=== PATIENT | male | born 2000 | race Caucasian/White ===

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

== ENCOUNTER 2024-04-28 21:36 | Emergency (ER) | payer BC, OTHER ==
--- NOTE | 2024-04-28 21:49 | ED ---
Syncope HPI - General Chief Complaint: Shortness of Breath Stated Complaint: Asthma Time Seen by Provider: 04/28/24 21:39 Source: patient, EMS, RN notes reviewed, old records reviewed, Caregiver Mode of arrival: EMS Limitations: no limitations - History of Present Illness Initial Comments: This is a 23-year-old male to the ER for evaluation of severe shortness of breath and asthma for 2 to 3 days worsening today throughout the day at home, patient got very short of breath prior to arrival and has syncopal event, patient did feel like he had to go to the bathroom prior to this event and did stool himself during EMS transfer. EMS arrived at the patient's house and he was unresponsive family states he was very pale diaphoretic and showing a little color of below, not breathing well, patient has no history of syncope long history of asthma with prior hospital admission, history of peanut allergy patient is concern for possible allergic exposure MD Complaint: loss of consciousness, collapsed -: minutes(s) Prodromal Symptoms: lightheaded, palpitations, heart racing, shortness of breath, diaphoresis -: minutes(s) Witnessed: yes - by bystander, yes - by EMS Injuries Sustained Associated with Event: None Current Symptoms: lightheaded, shortness of breath, weakness Context: during exertion Treatments Prior to Arrival: none - Related Data Home Medications Medication Instructions Recorded Confirmed Albuterol Inhaler [Ventolin 2 puff INHALATION RT-Q6H PRN 10/13/13 02/14/19 Inhaler] Allergies Allergy/AdvReac Type Severity Reaction Status Date / Time peanut Allergy Rash/Hives Verified 04/28/24 21:41 Review of Systems ROS Statement: Those systems with pertinent positive or pertinent negative responses have been documented in the HPI. ROS Other: All systems not noted in ROS Statement are negative. Past Medical History Past Medical History: Asthma History of Any Multi-Drug Resistant Organisms: None Reported Past Surgical History: Ear Surgery Additional Past Surgical History / Comment(s): Tubes in ears Past Psychological History: No Psychological Hx Reported Smoking Status: Never smoker Past Alcohol Use History: None Reported Past Drug Use History: None Reported General Exam General appearance: anxious, in distress Head exam: Present: atraumatic, normocephalic, normal inspection Eye exam: Present: normal appearance, PERRL, EOMI. Absent: scleral icterus, c onjunctival injection, periorbital swelling ENT exam: Present: normal exam, mucous membranes moist Neck exam: Present: normal inspection. Absent: tenderness, meningismus, lymphadenopathy Respiratory exam: Present: respiratory distress, wheezes, accessory muscle use, decreased breath sounds, prolonged expiratory. Absent: rales, rhonchi, stridor Cardiovascular Exam: Present: regular rate, normal rhythm, normal heart sounds. Absent: systolic murmur, diastolic murmur, rubs, gallop, clicks GI/Abdominal exam: Present: soft, normal bowel sounds. Absent: distended, tenderness, guarding, rebound, rigid Extremities exam: Present: normal inspection, full ROM, normal capillary refill. Absent: tenderness, pedal edema, joint swelling, calf tenderness Back exam: Present: normal inspection Neurological exam: Present: alert, oriented X3, CN II-XII intact Psychiatric exam: Present: normal affect, normal mood Skin exam: Present: warm, dry, intact, normal color. Absent: rash Course Vital Signs 04/28/24 04/28/24 04/28/24 21:37 22:09 22:10 Temperature 97.3 F L Pulse Rate 81 Respiratory 24 24 Rate Blood Pressure 142/81 O2 Sat by Pulse 98 99 Oximetry 04/28/24 04/28/24 04/29/24 22:31 22:51 00:00 Temperature Pulse Rate 92 97 71 Respiratory 11 L Rate Blood Pressure 103/54 O2 Sat by Pulse 95 Oximetry 04/29/24 04/29/24 00:14 00:30 Temperature Pulse Rate 86 95 Respiratory Rate Blood Pressure O2 Sat by Pulse Oximetry - Reevaluation(s) Reevaluation #1: 04/28/24 22:13 Medical records reviewed Reevaluation #4: Was pt. sent in by a medical professional or institution (, PA, HEAD HOLDER, urgent care, hospital, or prison...) When possible be specific @ -no Did you speak to anyone other than the patient for history (EMS, parent, family, police, friend...)? What history was obtained from this source @ -no Did you review nursing and triage notes (agree or disagree)? Why? @ -agree Are old charts reviewed (outside hosp., previous admission, EMS record, old EKG, old radiological studies, urgent care reports/EKG's, prison records)? Report findings @ -yes Differential Diagnosis (chest pain, altered mental status, abdominal pain women, abdominal pain men, vaginal bleeding, weakness, fever, dyspnea, syncope, headache, dizziness, GI bleed, back pain, seizure, CVA, palpatations, mental health, musculoskeletal)? @ -prior EKG interpreted by me (3pts min.). @ -yes X-rays interpreted by me (1pt min.). @ -yes negative for acute disease CT interpreted by me (1pt min.). @ -no U/S interpreted by me (1pt. min.). @ -no What testing was considered but not performed or refused? (CT, X-rays, U/S, labs)? Why? @ -none What meds were considered but not given or refused? Why? @ -none Did you discuss the management of the patient with other professionals (professionals i.e. , PA, HEAD HOLDER, lab, RT, psych nurse, social work professor, internal control specialist, teacher, railroad police officer, pillowcase sewer)? Give summary @ -no Was smoking cessation discussed for >3mins.? @ -no Was critical care preformed (if so, how long)? @ -no Were there social determinants of health that impacted care today? How? (Homelessness, low income, unemployed, alcoholism, drug addiction, transportation, low edu. Level, literacy, decrease access to med. care, alf, rehab)? @ -none Was there de-escalation of care discussed even if they declined (Discuss DNR or withdrawal of care, Hospice)? DNR status @ -no What co-morbidities impacted this encounter? (DM, HTN, Smoking, COPD, CAD, Cancer, CVA, ARF, Chemo, Hep., AIDS, mental health diagnosis, sleep apnea, morbid obesity)? @ -none Was patient admitted / discharged? Hospital course, mention meds given and route, prescriptions, significant lab abnormalities, going to OR and other pertinent info. @ - Undiagnosed new problem with uncertain prognosis? @ -no Drug Therapy requiring intensive monitoring for toxicity (Heparin, Nitro, Insulin, Cardizem)? @ -no Were any procedures done? @ -no Diagnosis/symptom? @ - Acute, or Chronic, or Acute on Chronic? @ -Acute Uncomplicated (without systemic symptoms) or Complicated (systemic symptoms)? @ -Complicated Side effects of treatment? @ -no Exacerbation, Progression, or Severe Exacerbation? @ -exacerbation Poses a threat to life or bodily function? How? (Chest pain, [place], [place], pneumonia, PE, COPD, DKA, ARF, appy, cholecystitis, CVA, Diverticulitis, Homicidal, Suicidal, threat to staff... and all critical care pts) @ -yes Reevaluation #5: Differential Syncope: Valvular disease, hypertrophic cardiomyopathy, pulmonary embolism, tamponade, tachycardia, bradycardia, [place], hypovolemia, hemorrhage, dissection, anemia, intracranial hemorrhage, seizure, hypoglycemia, carbon monoxide poisoning, this is not meant to be an all-inclusive list. Differential Dyspnea: Coronary syndrome, arrhythmia, tamponade, asthma, COPD, pulmonary embolism, pneumonia, pneumothorax, pulmonary effusion, anaphylaxis, diabetic ketoacidosis, flailed chest, pulmonary contusion, diaphragmatic rupture, anemia, neuromuscular, this is not meant to be an all-inclusive list. EKG Findings - EKG Comments: EKG Findings:: EKG is sinus 78 [place] 165 QRS 93 QTc 401 - EKG Results: EKG: interpreted by LUISA Medical Decision Making - Lab Data Result diagrams: 04/28/24 22:08 04/28/24 22:08 Lab Results 04/28/24 04/28/24 04/28/24 Range/Units 22:08 22:08 22:08 WBC 12.9 H (3.8-10.6) k/uL RBC 5.15 (4.30-5.90) m/uL Hgb 15.8 (13.0-17.5) gm/dL Hct 47.6 (39.0-53.0) % MCV 92.4 (80.0-100.0) fL MCH 30.6 (25.0-35.0) pg MCHC 33.1 (31.0-37.0) g/dL RDW 12.6 (11.5-15.5) % Plt Count 147 L (150-450) k/uL MPV 7.2 Neutrophils % 80 % Lymphocytes % 11 % Monocytes % 4 % Eosinophils % 4 % Basophils % 0 % Neutrophils # 10.4 H (1.3-7.7) k/uL Lymphocytes # 1.4 (1.0-4.8) k/uL Monocytes # 0.5 (0-1.0) k/uL Eosinophils # 0.5 (0-0.7) k/uL Basophils # 0.0 (0-0.2) k/uL PT (10.0-12.5) sec INR (<1.2) APTT (22.0-30.0) sec D-Dimer (<0.60) mg/L FEU Sodium 139 (137-145) mmol/L Potassium 4.2 (3.5-5.1) mmol/L Chloride 107 (98-107) mmol/L Carbon Dioxide 24 (22-30) mmol/L Anion Gap 8 mmol/L BUN 18 (9-20) mg/dL Creatinine 1.14 (0.66-1.25) mg/dL Est GFR (CKD-EPI)AfAm >90 (>60 ml/min/1.73 sqM) Est GFR (CKD-EPI)NonAf >90 (>60 ml/min/1.73 sqM) Glucose 97 (74-99) mg/dL Calcium 8.9 (8.4-10.2) mg/dL Magnesium 2.1 (1.6-2.3) mg/dL Total Bilirubin 0.7 (0.2-1.3) mg/dL AST 47 (17-59) U/L ALT 36 (4-49) U/L Alkaline Phosphatase 56 (38-126) U/L Troponin I <0.012 (0.000-0.034) ng/mL NT-Pro-B Natriuret Pep 20 pg/mL Total Protein 7.5 (6.3-8.2) g/dL Albumin 4.5 (3.5-5.0) g/dL Urine Color Urine Appearance (Clear) Urine pH (5.0-8.0) Ur Specific [place] (1.001-1.035) Urine Protein (Negative) Urine Glucose (UA) (Negative) Urine Ketones (Negative) Urine Blood (Negative) Urine Nitrite (Negative) Urine Bilirubin (Negative) Urine Urobilinogen (<2.0) mg/dL Ur Leukocyte Esterase (Negative) Serum Alcohol <10 mg/dL 04/28/24 04/29/24 Range/Units 23:58 00:47 WBC (3.8-10.6) k/uL RBC (4.30-5.90) m/uL Hgb (13.0-17.5) gm/dL Hct (39.0-53.0) % MCV (80.0-100.0) fL MCH (25.0-35.0) pg MCHC (31.0-37.0) g/dL RDW (11.5-15.5) % Plt Count (150-450) k/uL MPV Neutrophils % % Lymphocytes % % Monocytes % % Eosinophils % % Basophils % % Neutrophils # (1.3-7.7) k/uL Lymphocytes # (1.0-4.8) k/uL Monocytes # (0-1.0) k/uL Eosinophils # (0-0.7) k/uL Basophils # (0-0.2) k/uL PT 12.0 (10.0-12.5) sec INR 1.1 (<1.2) APTT 24.0 (22.0-30.0) sec D-Dimer 0.25 (<0.60) mg/L FEU Sodium (137-145) mmol/L Potassium (3.5-5.1) mmol/L Chloride (98-107) mmol/L Carbon Dioxide (22-30) mmol/L Anion Gap mmol/L BUN (9-20) mg/dL Creatinine (0.66-1.25) mg/dL Est GFR (CKD-EPI)AfAm (>60 ml/min/1.73 sqM) Est GFR (CKD-EPI)NonAf (>60 ml/min/1.73 sqM) Glucose (74-99) mg/dL Calcium (8.4-10.2) mg/dL Magnesium (1.6-2.3) mg/dL Total Bilirubin (0.2-1.3) mg/dL AST (17-59) U/L ALT (4-49) U/L Alkaline Phosphatase (38-126) U/L Troponin I (0.000-0.034) ng/mL NT-Pro-B Natriuret Pep pg/mL Total Protein (6.3-8.2) g/dL Albumin (3.5-5.0) g/dL Urine Color Colorless Urine Appearance Clear (Clear) Urine pH 6.5 (5.0-8.0) Ur Specific [place] 1.018 (1.001-1.035) Urine Protein Trace H (Negative) Urine Glucose (UA) 2+ H (Negative) Urine Ketones Negative (Negative) Urine Blood Negative (Negative) Urine Nitrite Negative (Negative) Urine Bilirubin Negative (Negative) Urine Urobilinogen <2.0 (<2.0) mg/dL Ur Leukocyte Esterase Negative (Negative) Serum Alcohol mg/dL Disposition Clinical Impression: Syncope Disposition: HOME SELF-CARE Condition: Good Instructions (If sedation given, give patient instructions): Syncope (ED) Is patient prescribed a controlled substance at d/c from ED?: No Referrals: Silver Hui MD [Primary Care Provider] - 1-2 days Time of Disposition: 01:00
[2024-04-28] MEDS: methylPREDNISolone SOD SUCCI 125 MG/2 ML VIAL IV STA (21:52)
[2024-04-28] MEDS: SODIUM CHLORIDE 0.9% 1,000 ML IV STA ×2 (22:09→22:51)
[2024-04-28 22:14] LABS: Basophils % (A) 0 %; Eosinophils # (A) 0.5 k/uL (0-0.7); Eosinophils % (A) 4 %; HCT 47.6 % (39.0-53.0); HGB 15.8 gm/dL (13.0-17.5); Lymphocytes # (A) 1.4 k/uL (1.0-4.8); Lymphocytes % (A) 11 %; MCH 30.6 pg (25.0-35.0); MCHC 33.1 g/dL (31.0-37.0); MCV 92.4 fL (80.0-100.0); Mean Platelet Volume 7.2; Monocytes # (A) 0.5 k/uL (0-1.0); Monocytes % (A) 4 %; Neutrophils # (A) 10.4 k/uL (1.3-7.7); Neutrophils % (A) 80 %; Platelet Count 147 k/uL (150-450); RBC 5.15 m/uL (4.30-5.90); RDW 12.6 % (11.5-15.5); WBC 12.9 k/uL (3.8-10.6)
[2024-04-28 22:29] LABS: ALT 36 U/L (4-49); AST 47 U/L (17-59); African American GFR (CKD) >90 (>60 ml/min/1.73 sqM); Albumin 4.5 g/dL (3.5-5.0); Alcohol <10 mg/dL; Alkaline Phosphatase 56 U/L (38-126); Anion Gap 8 mmol/L; Blood Urea Nitrogen 18 mg/dL (9-20); Calcium 8.9 mg/dL (8.4-10.2); Carbon Dioxide 24 mmol/L (22-30); Chloride 107 mmol/L (98-107); Glucose 97 mg/dL (74-99); Magnesium 2.1 mg/dL (1.6-2.3); Non-African American GFR(CKD) >90 (>60 ml/min/1.73 sqM); Potassium 4.2 mmol/L (3.5-5.1); Sodium 139 mmol/L (137-145); Total Bilirubin 0.7 mg/dL (0.2-1.3); Total Protein 7.5 g/dL (6.3-8.2)
[2024-04-28] MEDS: IPRATROPIUM-ALBUTEROL 3 ML NEB INHALATION STA (22:30)
[2024-04-28 22:37] LABS: NT-Pro-B-Type Natriuretic Pept 20 pg/mL
[2024-04-28] MEDS: KETOROLAC 15 MG/ML 1 ML VIAL IVP STA (23:54)
[2024-04-29 00:04] VITALS: BP 103/54
[2024-04-29] MEDS: IPRATROPIUM-ALBUTEROL 3 ML NEB INHALATION STA (00:13)
[2024-04-29 00:27] LABS: INR 1.1 (<1.2)
[2024-04-29 00:57] LABS: Appearance,Urine Clear (Clear); Bilirubin,Urine Negative (Negative); Blood,Urine Negative (Negative); Color,Urine Colorless; Glucose,Urine (UA) 2+ (Negative); Ketones,Urine Negative (Negative); Leukocyte Esterase,Urine Negative (Negative); Nitrite,Urine Negative (Negative); PH, Urine 6.5 (5.0-8.0); Protein,Urine Trace (Negative); Specific Gravity,Urine 1.018 (1.001-1.035); Urobilinogen,Urine <2.0 mg/dL (<2.0)
[2024-04-29 01:19] LABS: Amphetamine Screen,Urine Not Detected (NotDetected); Barbiturate Screen,Urine Not Detected (NotDetected); Benzodiazepines Screen,Urine Not Detected (NotDetected); Cocaine Screen,Urine Not Detected (NotDetected); Methadone Screen, Urine Not Detected (NotDetected); Opiate Screen,Urine Not Detected (NotDetected); Oxycodone Screen, Urine Not Detected (NotDetected); Phencyclidine Screen,Urine Not Detected (NotDetected); Tricyclic Antidepressant,Urine Not Detected (NotDetected); Urn Cannabinoid Scrn Detected (NotDetected)
[2024-04-29 01:31] VITALS: PULSE 71; RESP 18; TEMP 98
--- NOTE | 2024-04-29 02:23 | XR ---
EXAM: XR Chest, 1 View CLINICAL HISTORY: sob TECHNIQUE: Frontal view of the chest. COMPARISON: No relevant prior studies available. FINDINGS: Lungs: No infiltrate. No atelectasis. No CHF. Pleural space: No pleural effusion. No pneumothorax. Heart: Unremarkable. No cardiomegaly. Mediastinum: Unremarkable. Normal mediastinal contour. Bones/joints: Unremarkable. No acute fracture. IMPRESSION: No acute abnormality.
== END 2024-04-29 01:31 | disposition home or self-care (01) ==
LOC: EC 21:36
DX: R55 Syncope and collapse (principal); Z91.010 Allergy to peanuts
CPT/HCPCS: 36415; 71045; 80053; 80306; 80320; 81003; 83735; 83880; 84484; 85025; 85379; 85610; 85730; 93005; 94640; 96360; 99285

== ENCOUNTER 2024-08-26 23:18 | Emergency (ER) | payer BC, OTHER ==
[2024-08-26 23:22] VITALS: TEMP 98
--- NOTE | 2024-08-26 23:43 | ED ---
SOB HPI <Loyda Mijares - Last Filed: 08/27/24 02:12> - General Source: patient Mode of arrival: ambulatory Limitations: no limitations <Ruslan Perry - Last Filed: 08/27/24 02:41> - General Chief Complaint: Shortness of Breath Stated Complaint: NATASHA - History of Present Illness Initial Comments: Patient is a 24-year-old male with history of asthma and uses albuterol inhaler and nebulizer at home presents to the ED with shortness of breath that started this morning. Patient reports this happened this morning when he was working at a barn. Mom reports that patient has a history of asthma. Patient's shortness of breath has gotten progressively worse throughout the day. Last time he used an albuterol nebulizer was about 30 minutes ago. Currently endorses shortness of breath, cough, runny nose, chest tightness. Patient denies fever, chills, chest pain, nausea, vomiting, belly pain, diarrhea. (Ruslan Perry) - Related Data Home Medications Medication Instructions Recorded Confirmed Albuterol Inhaler [Ventolin 2 puff INHALATION RT-Q6H PRN 10/13/13 02/14/19 Inhaler] Previous Rx's Medication Instructions Recorded Ipratropium-Albuterol Nebulize 3 ml INHALATION QID PRN 30 Days 08/27/24 [Duoneb 0.5 mg-3 mg/3 ml Soln] #90 ml predniSONE [Deltasone] 20 mg PO BID 4 Days #8 tab 08/27/24 Allergies Allergy/AdvReac Type Severity Reaction Status Date / Time peanut Allergy Rash/Hives Verified 08/26/24 23:22 Review of Systems ROS Other: All systems not noted in ROS Statement are negative. <Loyda Mijares - Last Filed: 08/27/24 02:12> ROS Other: All systems not noted in ROS Statement are negative. Constitutional: Denies: fever, chills ENT: Reports: congestion Respiratory: Reports: cough, dyspnea Cardiovascular: Denies: chest pain, palpitations Gastrointestinal: Denies: abdominal pain, nausea, vomiting, diarrhea, constipation Genitourinary: Denies: urgency, dysuria <Ruslan Perry - Last Filed: 08/27/24 02:41> ROS Statement: Those systems with pertinent positive or pertinent negative responses have been documented in the HPI. Past Medical History Past Medical History: Asthma History of Any Multi-Drug Resistant Organisms: None Reported Past Surgical History: Ear Surgery Additional Past Surgical History / Comment(s): Tubes in ears Past Psychological History: No Psychological Hx Reported Smoking Status: Never smoker Past Alcohol Use History: None Reported Past Drug Use History: None Reported <Ruslan Perry - Last Filed: 08/27/24 02:41> General Exam Limitations: no limitations <Ruslan Perry - Last Filed: 08/27/24 02:41> - General Exam Comments Initial Comments: GENERAL: This is a 24-year-old in no apparent distress at the time of examination. Pleasant and cooperative. HEENT: Head is atraumatic, normocephalic. Pupils are equal, round, and reactive to light. Sclerae anicteric. Conjunctivae are clear. Mucus membranes of the mouth are moist. Neck is supple. RESPIRATORY: Wheezing was noted throughout the lung jose, no crackles, rhonchi, stridor. Patient seems to be in respiratory distress. CARDIOVASCULAR: Regular rate and rhythm. S1 and S2 noted. No systolic or diastolic murmur auscultated. No JVD noted. No S3 or S4 noted. GASTROINTESTINAL: No distention noted. Abdomen soft and round. Normal active bowel sounds auscultated x 4 quadrants. No pain or tenderness noted upon palpation. INTEGUMENTARY: No cyanosis. No jaundice. No rashes noted. No cellulitis noted. EXTREMITIES: 2+ peripheral pulses. No evidence of peripheral edema. No calf tenderness noted. NEUROLOGIC: Cranial nerves II-XII intact. PSYCHIATRIC: Awake, alert, and oriented X 3. Appropriate affect. Intact judgement and insight. (Ruslan Perry) Course Vital Signs 08/26/24 08/27/24 08/27/24 23:20 00:00 00:03 Temperature 98.0 F Pulse Rate 105 H 114 H Respiratory 20 20 Rate Blood Pressure 132/84 O2 Sat by Pulse 96 Oximetry 08/27/24 08/27/24 08/27/24 00:17 00:18 00:30 Temperature Pulse Rate 115 H 115 H 100 Respiratory Rate Blood Pressure O2 Sat by Pulse Oximetry 08/27/24 08/27/24 08/27/24 00:31 00:51 02:22 Temperature 98.0 F Pulse Rate 105 H 110 H 69 Respiratory 22 Rate Blood Pressure 114/69 O2 Sat by Pulse 95 Oximetry Medical Decision Making <Ruslan Perry - Last Filed: 08/27/24 02:41> - Medical Decision Making Was pt. sent in by a medical professional or institution ([facility] Chaudhry, [employer], urgent care, hospital, or fdc...) When possible be specific @ -No Did you speak to anyone other than the patient for history (EMS, parent, family, police, friend...)? What history was obtained from this source @ -Spoke with patient's family Did you review nursing and triage notes (agree or disagree)? Why? @ -Reviewed and agree with nursing and triage notes Were old charts reviewed (outside hosp., previous admission, EMS record, old EKG, old radiological studies, urgent care reports/EKG's, fdc records)? Report findings @ -No old charts reviewed Differential Diagnosis? @ -Asthma exacerbation, COVID, RSV, flu, URI EKG interpreted by me (3pts min.). @ -None ordered X-rays interpreted by me (1pt min.). @ -Chest x-ray was unremarkable CT interpreted by me (1pt min.). @ -None done U/S interpreted by me (1pt. min.). @ -None done What testing was considered but not performed or refused? (CT, X-rays, U/S, labs)? Why? @ -None What meds were considered but not given or refused? Why? @ -None Did you discuss the management of the patient with other professionals (professionals i.e. JOELLE Chaudhry, [employer], lab, RT, psych nurse, social media marketing specialist, slipman, teacher, traffic control officer, pillowcase folder)? Give summary @ -Discussed with attending physician Was smoking cessation discussed for >3mins.? @ -No Was critical care preformed (if so, how long)? @ -No Were there social determinants of health that impacted care today? How? (Homelessness, low income, unemployed, alcoholism, drug addiction, transportation, low edu. Level, literacy, decrease access to med. care, detention, rehab)? @ -No Was there de-escalation of care discussed even if they declined (Discuss DNR or withdrawal of care, Hospice)? DNR status @ -No What co-morbidities impacted this encounter? (DM, HTN, Smoking, COPD, CAD, Cancer, CVA, ARF, Chemo, Hep., AIDS, mental health diagnosis, sleep apnea, mor bid obesity)? @ -History of asthma Was patient admitted / discharged? Hospital course, mention meds given and route, prescriptions, significant lab abnormalities, going to OR and other pertinent info. @ -Patient is a 24-year-old male with history of asthma presented to the ED with shortness of breath that started this morning. Albuterol, ipratropium and Decadron given in the ED. upon reevaluation, patient's wheezing, cough, shortness of breath have improved. Patient is stable to be discharged back home with prednisone for next 4 days and DuoNeb for the next 30 days. Undiagnosed new problem with uncertain prognosis? @ -No Drug Therapy requiring intensive monitoring for toxicity (Heparin, Nitro, Insulin, Cardizem)? @ -No Were any procedures done? @ -No Diagnosis/symptom? @ -Asthma exacerbation Acute, or Chronic, or Acute on Chronic? @ -Acute Uncomplicated (without systemic symptoms) or Complicated (systemic symptoms)? @ -Uncomplicated Side effects of treatment? @ -No Exacerbation, Progression, or Severe Exacerbation? @ -No exacerbation Poses a threat to life or bodily function? How? (Chest pain, USA, PA, pneumonia, PE, COPD, DKA, ARF, appy, cholecystitis, CVA, Diverticulitis, Homicidal, Suicidal, threat to staff... and all critical care pts) @ -No (Ruslan Perry) - Lab Data Lab Results 08/26/24 Range/Units 23:54 Influenza Type A (PCR) Not Detected (Not Detectd) Influenza Type B (PCR) Not Detected (Not Detectd) RSV (PCR) Not Detected (Not Detectd) SARS-CoV-2 (PCR) Not Detected (Not Detectd) Disposition Is patient prescribed a controlled substance at d/c from ED?: No <Loyda Mijares - Last Filed: 08/27/24 02:12> Time of Disposition: 02:40 <Ruslan Perry - Last Filed: 08/27/24 02:41> Clinical Impression: Asthma exacerbation Narrative: Patient will be discharged home with prednisone for the next 4 days and DuoNeb for next 30 days (Ruslan Perry) Disposition: HOME SELF-CARE Condition: Good Instructions (If sedation given, give patient instructions): Acute Bronchitis (ED) Additional Instructions: Every disease is a spectrum and a small chance still exists that a serious condition could develop, for this reason, please monitor yourself closely for new, changing or worsening symptoms, symptoms that do not continue to improve over the next 48 hours, using your albuterol inhaler or your nebulizer more than prescribed, coughing up thick sputum or blood, blueness of your lips, lightheadedness or dizziness or passing out due to shortness of breath or difficulty in breathing, fever, inability to tolerate/keep down fluids or your medications, inability to follow up with outpatient providers as instructed and should you experience these symptoms or should you have any further concerns for your wellbeing please return to the ED or call 911 immediately. PLEASE call your primary care physician as soon as possible to arrange / discuss plan for followup appointment. Appointment in the next 1-3 days is strongly encouraged if possible. PLEASE let us know here before you leave if there is anything further we can do to be of any assistance. Take care and feel Better! Prescriptions: predniSONE [Deltasone] 20 mg PO BID 4 Days #8 tab Ipratropium-Albuterol Nebulize [Duoneb 0.5 mg-3 mg/3 ml Soln] 3 ml INHALATION QID PRN 30 Days #90 ml PRN Reason: Shortness Of Breath Referrals: Silver Hui MD [STAFF PHYSICIAN] - 1-2 days
[2024-08-27] MEDS: ALBUTEROL NEBULIZED 2.5 MG/3 ML INHALATION SCH
[2024-08-27] MEDS: IPRATROPIUM 0.5 MG/2.5 ML NEBU INHALATION STA ×3 (00:17→00:31)
[2024-08-27] MEDS: ALBUTEROL NEBULIZED (CONC) 5 MG, SODIUM CHLORIDE 0.9% NEBULIZ 3 ML INHALATION STA (00:31)
[2024-08-27] MEDS: methylPREDNISolone SOD SUCCI 125 MG/2 ML VIAL IV STA (00:41)
[2024-08-27] MEDS: DEXAMETHASONE SOD PHOSPHATE 10 MG/ML 1 ML VIAL IM STA (01:05)
[2024-08-27 01:10] LABS: Influenza A Not Detected (Not Detectd); Influenza B Not Detected (Not Detectd); RSV Not Detected (Not Detectd)
--- NOTE | 2024-08-27 01:55 | XR ---
EXAM: XR Chest, 1 View CLINICAL HISTORY: ITS.REASON XR Reason: shortness of breath TECHNIQUE: Frontal view of the chest. COMPARISON: CXR 04-28-2024. FINDINGS: Lungs: Unremarkable. No consolidation. Pleural space: Unremarkable. No pneumothorax. Heart: Unremarkable. No cardiomegaly. Mediastinum: Unremarkable. Normal mediastinal contour. Bones/joints: Unremarkable. No acute fracture. IMPRESSION: No evidence of acute cardiopulmonary process.
[2024-08-27 02:28] VITALS: BP 114/69; PULSE 69; RESP 22
== END 2024-08-27 02:22 | disposition home or self-care (01) ==
LOC: EC 23:18
DX: J45.901 Unspecified asthma with (acute) exacerbation (principal); Z91.010 Allergy to peanuts
CPT/HCPCS: 99285; 96372; 94640 ×2; 87636; 71045; J1100

== ENCOUNTER 2024-11-03 23:55 | Observation (INO) | payer BC, OTHER ==
[2024-11-04] MEDS: methylPREDNISolone SOD SUCCI 125 MG/2 ML VIAL IV STA (00:15)
[2024-11-04] MEDS: LORazepam 2 MG/ML INJ IV STA (00:16)
[2024-11-04 00:18] LABS: Glucose,Whole Blood 117 mg/dL (70-110)
[2024-11-04] MEDS: SODIUM CHLORIDE 0.9% 1,000 ML IV STA (00:19)
[2024-11-04] MEDS: SODIUM CHLORIDE 0.9% 500 ML 500 ML IV ONE (00:19)
--- NOTE | 2024-11-04 00:20 | ED ---
General Adult HPI - General Chief complaint: Shortness of Breath Stated complaint: SOB Time Seen by Provider: 11/04/24 00:00 Source: EMS Mode of arrival: EMS Limitations: altered mental status - History of Present Illness Initial comments: This patient is a 24-year-old man with history of asthma who is brought by ambulance to have evaluation for having developed respiratory distress. All of the history is from the patient's mother. She states that the patient had been working in their pole barn on his car all day. He came in the house and was hav ing a hard time breathing. She states that he tried his inhaler and then when he was not improving the family called EMS. She states that he started to appear blue and then was becoming less responsive. EMS reports that on their arrival, the patient appeared to be poorly responsive, his color was not right, he was diaphoretic and they instituted ACLS protocol. They administered oxygen, nebulized albuterol, gave epinephrine 0.3 mg IM and they also gave Solu-Medrol 125 mg. EMS reports that the patient respiratory status appeared so an adequate that they considered intubation but in trying to place the tube the patient became more responsive and fended off. The patient not able to give any history. -: minutes(s) Associated Symptoms: diaphoresis, shortness of breath Treatments Prior to Arrival: other (See above) - Related Data Home Medications Medication Instructions Recorded Confirmed Albuterol Inhaler [Ventolin Hfa 2 puff INHALATION RT-Q6H PRN 10/13/13 11/04/24 Inhaler] Albuterol Nebulized [Ventolin 2.5 mg INHALATION RT-TID PRN 11/04/24 11/04/24 Nebulized] Budesonide/Formoterol Fumarate 2 puff INHALATION RT-BID 11/04/24 11/04/24 [Breyna 160-4.5 Mcg Inhaler] Previous Rx's Medication Instructions Recorded methylPREDNISolone Dose Pack 4 mg PO DIRECTED #1 packet 11/05/24 [Medrol Dose Pack] Allergies Allergy/AdvReac Type Severity Reaction Status Date / Time peanut Allergy Rash/Hives Verified 11/04/24 11:15 Review of Systems ROS Statement: Those systems with pertinent positive or pertinent negative responses have been documented in the HPI. ROS Other: All systems not noted in ROS Statement are negative. Limitations: ROS unobtainable due to patients medical condition Past Medical History Past Medical History: Asthma History of Any Multi-Drug Resistant Organisms: None Reported Past Surgical History: Ear Surgery Additional Past Surgical History / Comment(s): Tubes in ears Past Psychological History: No Psychological Hx Reported Smoking Status: Current every day smoker Past Alcohol Use History: None Reported Past Drug Use History: None Reported General Exam Limitations: no limitations General appearance: obtunded Head exam: Present: atraumatic, normocephalic Eye exam: Present: PERRL. Absent: scleral icterus, conjunctival injection, nyst agmus, periorbital swelling, periorbital tenderness ENT exam: Present: other (The patient's jaw is clenched on arrival) Neck exam: Present: normal inspection. Absent: tenderness, meningismus Respiratory exam: Present: respiratory distress (Patient is mildly tachypneic), rhonchi. Absent: wheezes, rales, stridor, accessory muscle use, prolonged expiratory Cardiovascular Exam: Present: regular rate, normal rhythm, normal heart sounds. Absent: systolic murmur, diastolic murmur, rubs, gallop GI/Abdominal exam: Present: soft. Absent: distended, tenderness, guarding, rebo und, rigid, mass Extremities exam: Present: normal inspection, normal capillary refill. Absent: pedal edema, calf tenderness Back exam: Present: normal inspection Neurological exam: Present: altered, reflexes normal. Absent: motor sensory deficit Skin exam: Present: intact, diaphoretic, pallor. Absent: rash Course Vital Signs 11/03/24 11/04/24 11/04/24 23:58 00:26 03:15 Temperature 98.5 F Pulse Rate 80 101 H 72 Respiratory 22 20 17 Rate Blood Pressure 145/95 121/72 106/57 O2 Sat by Pulse 94 L 100 93 L Oximetry 11/04/24 11/04/24 11/04/24 06:33 08:55 18:00 Temperature Pulse Rate 81 87 59 L Respiratory 18 18 17 Rate Blood Pressure 116/51 117/69 102/64 O2 Sat by Pulse 98 96 99 Oximetry EKG Findings - EKG Results: EKG: interpreted by LUISA, sinus rhythm (Rate 84 bpm), normal axis, normal QRS, normal ST/T, no acute changes - DC, Pacemaker, Normal: Normal tracing: normal tracing Medical Decision Making - Medical Decision Making On arrival, the patient is not cooperative with history and physical. The patient does have postictal appearance. He is making incomprehensible noises. He moves all 4 extremities. He is diaphoretic and pale. The patient's respiratory exam reveals rhonchi and tachypneic rate but the patient is not having significant wheeze. The patient's workup here reveals mainly significant lactic acidosis. The patient's chest x-ray is clear, per my interpretation no infiltrate, congestive heart failure, pneumothorax. The labs otherwise not remarkable. At this point it appears the patient may have had significant respiratory distress at home and is suspected to have had a seizure with resulting postictal period. The patient did have aggressive treatment for bronchospasm including epinephrine, Solu-Medrol and nebulized medication and at this point having very minimal respiratory symptoms. Given that the patient has not returned to baseline mental status will admit, to have EEG, neurology consultation, also pulmonology consultation related to the respiratory distress at the home. The patient had CT scan of the brain that I interpreted as negative for acute intracranial hemorrhage, mass effect or midline shift. The patient's mental status has improved. He does continue to be appearing po stictal. He will speak but not answering questions. He does have purposeful movements. Covering his himself with a blanket for example. No evidence of meningitis, no neck stiffness. Was pt. sent in by a medical professional or institution (JOELLE Chaudhry, [employer], urgent care, hospital, or jail...) When possible be specific @ -[No] Did you speak to anyone other than the patient for history (EMS, parent, family, police, friend...)? What history was obtained from this source @ -[No] Did you review nursing and triage notes (agree or disagree)? Why? @ -[I reviewed and agree with nursing and triage notes] Were old charts reviewed (outside hosp., previous admission, EMS record, old EKG, old radiological studies, urgent care reports/EKG's, jail records)? Report findings @ -[No old charts were reviewed] Differential Diagnosis (chest pain, altered mental status, abdominal pain women, abdominal pain men, vaginal bleeding, weakness, fever, dyspnea, syncope, headache, dizziness, GI bleed, back pain, seizure, CVA, palpatations, mental health, musculoskeletal)? @ -[Differential Altered Mental Status: Hypoglycemia, DKA, hypercapnia, ETOH, overdose, CO poisoning, trauma, myxedema coma, HTN encephalopathy, infection, encephalitis, psychosis, intercranial hemorrhage, hepatic encephalopathy, meningitis, CVA, this is not meant to be an all-inclusive list Differential Dyspnea: Coronary syndrome, arrhythmia, tamponade, asthma, COPD, pulmonary embolism, pneumonia, pneumothorax, pulmonary effusion, anaphylaxis, diabetic ketoacidosis, flailed chest, pulmonary contusion, diaphragmatic rupture, anemia, neuromuscular, this is not meant to be an all-inclusive list. EKG interpreted by me (3pts min.). @ -[I interpreted as above] X-rays interpreted by me (1pt min.). @ -[I interpreted as above CT interpreted by me (1pt min.). @ -[I interpreted as above U/S interpreted by me (1pt. min.). @ -[None done] What testing was considered but not performed or refused? (CT, X-rays, U/S, labs)? Why? @ -[None] What meds were considered but not given or refused? Why? @ -[None] Did you discuss the management of the patient with other professionals (professionals i.e. , PA, [employer] S[employer]GE[employer], lab, RT, psych nurse, social work job titles, rag production worker, teacher, tax compliance officer, case monitor)? Give summary @ -[No] Was smoking cessation discussed for >3mins.? @ -[No] Was critical care preformed (if so, how long)? @ -[Yes, 35 minutes Were there social determinants of health that impacted care today? How? (Homelessness, low income, unemployed, alcoholism, drug addiction, transportation, low edu. Level, literacy, decrease access to med. care, alf, rehab)? @ -[No] Was there de-escalation of care discussed even if they declined (Discuss DNR or withdrawal of care, Hospice)? DNR status @ -[No] What co-morbidities impacted this encounter? (DM, HTN, Smoking, COPD, CAD, Cancer, CVA, ARF, Chemo, Hep., AIDS, mental health diagnosis, sleep apnea, morbid obesity)? @ -[None] Was patient admitted / discharged? Hospital course, mention meds given and route, prescriptions, significant lab abnormalities, going to OR and other pertinent info. @ -[See above Undiagnosed new problem with uncertain prognosis? @ -[No] Drug Therapy requiring intensive monitoring for toxicity (Heparin, Nitro, Insulin, Cardizem)? @ -[No] Were any procedures done? @ -[No] Diagnosis/symptom? @ -[Acute altered mental status Acute lactic acidosis Acute asthma exacerbation Suspected seizure with postictal period Acute, or Chronic, or Acute on Chronic? @ -[Acute Uncomplicated (without systemic symptoms) or Complicated (systemic symptoms)? @ -Complicated by altered mental status Side effects of treatment? @ -[No] Exacerbation, Progression, or Severe Exacerbation? @ -[No] Poses a threat to life or bodily function? How? (Chest pain, USA, DC, pneumonia, PE, COPD, DKA, ARF, appy, cholecystitis, CVA, Diverticulitis, Homicidal, Suicidal, threat to staff... and all critical care pts) @ -[Yes, requires further evaluation by pulmonology service and neurology. All treatments are based on ideal body weight as in ED triage - Lab Data Result diagrams: 11/05/24 06:43 11/05/24 06:43 Lab Results 11/04/24 11/04/24 11/04/24 Range/Units 00:05 00:05 00:15 WBC 12.90 H (4.50-10.00) 10*3/uL RBC 5.25 (4.40-5.60) 10*6/uL Hgb 16.3 (13.0-17.0) g/dL Hct 47.7 (39.6-50.0) % MCV 90.9 (80.0-97.0) fL MCH 31.0 (27.0-32.0) pg MCHC 34.2 (32.0-37.0) g/dL Plt Count 278 (140-440) 10*3/uL MPV 9.7 (9.5-12.2) fL Immature Gran % (Auto) 0.3 % Neutrophils % 62.1 % Lymphocytes % 24.8 % Monocytes % 7.2 % Eosinophils % 5.1 % Basophils % 0.5 % Immature Gran # 0.04 (0.00-0.04) 10*3/uL Neutrophils # 8.01 H (1.80-7.70) 10*3/uL Lymphocytes # 3.20 (0.90-5.00) 10*3/uL Monocytes # 0.93 (0.20-1.00) 10*3/uL Eosinophils # 0.66 H (0.04-0.35) 10*3/uL Basophils # 0.06 (0.00-0.10) 10*3/uL Immature Plt Fraction 1.9 (1.1-6.1) % PT (10.0-12.5) sec INR (<1.2) APTT (22.0-30.0) sec Carbon Monoxide, Quant (<10.0) % Sodium (137-145) mmol/L Potassium (3.5-5.1) mmol/L Chloride (98-107) mmol/L Carbon Dioxide (22-30) mmol/L Anion Gap mmol/L BUN (9-20) mg/dL Creatinine (0.66-1.25) mg/dL Est GFR (CKD-EPI)AfAm (>60 ml/min/1.73 sqM) Est GFR (CKD-EPI)NonAf (>60 ml/min/1.73 sqM) Glucose (74-99) mg/dL POC Glucose (mg/dL) (70-110) mg/dL POC Glu Air Lift Operator ID Lactic Ac Sepsis Rflx Plasma Lactic Acid Oleg (0.7-2.0) mmol/L Calcium (8.4-10.2) mg/dL Total Bilirubin (0.2-1.3) mg/dL AST (17-59) U/L ALT (4-49) U/L Alkaline Phosphatase (38-126) U/L Troponin I (0.000-0.034) ng/mL Total Protein (6.3-8.2) g/dL Albumin (3.5-5.0) g/dL Urine Color Light Yellow Urine Appearance Clear (Clear) Urine pH 6.0 (5.0-8.0) Ur Specific Hamilton 1.018 (1.001-1.035) Urine Protein 2+ H (Negative) Urine Glucose (UA) Trace H (Negative) Urine Ketones Trace H (Negative) Urine Blood Moderate H (Negative) Urine Nitrite Negative (Negative) Urine Bilirubin Negative (Negative) Urine Urobilinogen <2.0 (<2.0) mg/dL Ur Leukocyte Esterase Negative (Negative) Urine RBC 4 (0-5) /hpf Urine WBC 6 H (0-5) /hpf Ur Squamous Epith Cells <1 (0-4) /hpf Urine Bacteria Rare H (None) /hpf Cellular Casts 4 (0) /lpf Hyaline Casts 8 H (0-2) /lpf Urine Mucus Rare H (None) /hpf Urine Opiates Screen Not Detected (NotDetected) Ur Oxycodone Screen Not Detected (NotDetected) Urine Methadone Screen Not Detected (NotDetected) Ur Barbiturates Screen Not Detected (NotDetected) U Tricyclic Antidepress Not Detected (NotDetected) Ur Phencyclidine Scrn Not Detected (NotDetected) Ur Amphetamines Screen Not Detected (NotDetected) U Methamphetamines Scrn Not Detected (NotDetected) U Benzodiazepines Scrn Not Detected (NotDetected) Urine Cocaine Screen Not Detected (NotDetected) U Marijuana (THC) Screen Detected H (NotDetected) Serum Alcohol mg/dL 11/04/24 11/04/24 11/04/24 Range/Units 00:15 00:15 00:15 WBC (4.50-10.00) 10*3/uL RBC (4.40-5.60) 10*6/uL Hgb (13.0-17.0) g/dL Hct (39.6-50.0) % MCV (80.0-97.0) fL MCH (27.0-32.0) pg MCHC (32.0-37.0) g/dL Plt Count (140-440) 10*3/uL MPV (9.5-12.2) fL Immature Gran % (Auto) % Neutrophils % % Lymphocytes % % Monocytes % % Eosinophils % % Basophils % % Immature Gran # (0.00-0.04) 10*3/uL Neutrophils # (1.80-7.70) 10*3/uL Lymphocytes # (0.90-5.00) 10*3/uL Monocytes # (0.20-1.00) 10*3/uL Eosinophils # (0.04-0.35) 10*3/uL Basophils # (0.00-0.10) 10*3/uL Immature Plt Fraction (1.1-6.1) % PT 11.8 (10.0-12.5) sec INR 1.1 (<1.2) APTT 18.4 L (22.0-30.0) sec Carbon Monoxide, Quant (<10.0) % Sodium 142 (137-145) mmol/L Potassium 3.7 (3.5-5.1) mmol/L Chloride 102 (98-107) mmol/L Carbon Dioxide 16 L (22-30) mmol/L Anion Gap 24 mmol/L BUN 13 (9-20) mg/dL Creatinine 1.27 H (0.66-1.25) mg/dL Est GFR (CKD-EPI)AfAm >90 (>60 ml/min/1.73 sqM) Est GFR (CKD-EPI)NonAf 80 (>60 ml/min/1.73 sqM) Glucose 127 H (74-99) mg/dL POC Glucose (mg/dL) (70-110) mg/dL POC Glu Air Lift Operator ID Lactic Ac Sepsis Rflx Plasma Lactic Acid Oleg (0.7-2.0) mmol/L Calcium 9.5 (8.4-10.2) mg/dL Total Bilirubin 0.6 (0.2-1.3) mg/dL AST 110 H (17-59) U/L ALT 87 H (4-49) U/L Alkaline Phosphatase 62 (38-126) U/L Troponin I <0.012 (0.000-0.034) ng/mL Total Protein 8.0 (6.3-8.2) g/dL Albumin 5.1 H (3.5-5.0) g/dL Urine Color Urine Appearance (Clear) Urine pH (5.0-8.0) Ur Specific Hamilton (1.001-1.035) Urine Protein (Negative) Urine Glucose (UA) (Negative) Urine Ketones (Negative) Urine Blood (Negative) Urine Nitrite (Negative) Urine Bilirubin (Negative) Urine Urobilinogen (<2.0) mg/dL Ur Leukocyte Esterase (Negative) Urine RBC (0-5) /hpf Urine WBC (0-5) /hpf Ur Squamous Epith Cells (0-4) /hpf Urine Bacteria (None) /hpf Cellular Casts (0) /lpf Hyaline Casts (0-2) /lpf Urine Mucus (None) /hpf Urine Opiates Screen (NotDetected) Ur Oxycodone Screen (NotDetected) Urine Methadone Screen (NotDetected) Ur Barbiturates Screen (NotDetected) U Tricyclic Antidepress (NotDetected) Ur Phencyclidine Scrn (NotDetected) Ur Amphetamines Screen (NotDetected) U Methamphetamines Scrn (NotDetected) U Benzodiazepines Scrn (NotDetected) Urine Cocaine Screen (NotDetected) U Marijuana (THC) Screen (NotDetected) Serum Alcohol 12 mg/dL 11/04/24 11/04/24 11/04/24 Range/Units 00:15 00:17 00:54 WBC (4.50-10.00) 10*3/uL RBC (4.40-5.60) 10*6/uL Hgb (13.0-17.0) g/dL Hct (39.6-50.0) % MCV (80.0-97.0) fL MCH (27.0-32.0) pg MCHC (32.0-37.0) g/dL Plt Count (140-440) 10*3/uL MPV (9.5-12.2) fL Immature Gran % (Auto) % Neutrophils % % Lymphocytes % % Monocytes % % Eosinophils % % Basophils % % Immature Gran # (0.00-0.04) 10*3/uL Neutrophils # (1.80-7.70) 10*3/uL Lymphocytes # (0.90-5.00) 10*3/uL Monocytes # (0.20-1.00) 10*3/uL Eosinophils # (0.04-0.35) 10*3/uL Basophils # (0.00-0.10) 10*3/uL Immature Plt Fraction (1.1-6.1) % PT (10.0-12.5) sec INR (<1.2) APTT (22.0-30.0) sec Carbon Monoxide, Quant (<10.0) % Sodium (137-145) mmol/L Potassium (3.5-5.1) mmol/L Chloride (98-107) mmol/L Carbon Dioxide (22-30) mmol/L Anion Gap mmol/L BUN (9-20) mg/dL Creatinine (0.66-1.25) mg/dL Est GFR (CKD-EPI)AfAm (>60 ml/min/1.73 sqM) Est GFR (CKD-EPI)NonAf (>60 ml/min/1.73 sqM) Glucose (74-99) mg/dL POC Glucose (mg/dL) 117 H (70-110) mg/dL POC Glu Air Lift Operator ID Burgess Navarrete Lactic Ac Sepsis Rflx Y Plasma Lactic Acid Oleg 7.9 H* (0.7-2.0) mmol/L Calcium (8.4-10.2) mg/dL Total Bilirubin (0.2-1.3) mg/dL AST (17-59) U/L ALT (4-49) U/L Alkaline Phosphatase (38-126) U/L Troponin I (0.000-0.034) ng/mL Total Protein (6.3-8.2) g/dL Albumin (3.5-5.0) g/dL Urine Color Urine Appearance (Clear) Urine pH (5.0-8.0) Ur Specific [place] (1.001-1.035) Urine Protein (Negative) Urine Glucose (UA) (Negative) Urine Ketones (Negative) Urine Blood (Negative) Urine Nitrite (Negative) Urine Bilirubin (Negative) Urine Urobilinogen (<2.0) mg/dL Ur Leukocyte Esterase (Negative) Urine RBC (0-5) /hpf Urine WBC (0-5) /hpf Ur Squamous Epith Cells (0-4) /hpf Urine Bacteria (None) /hpf Cellular Casts (0) /lpf Hyaline Casts (0-2) /lpf Urine Mucus (None) /hpf Urine Opiates Screen (NotDetected) Ur Oxycodone Screen (NotDetected) Urine Methadone Screen (NotDetected) Ur Barbiturates Screen (NotDetected) U Tricyclic Antidepress (NotDetected) Ur Phencyclidine Scrn (NotDetected) Ur Amphetamines Screen (NotDetected) U Methamphetamines Scrn (NotDetected) U Benzodiazepines Scrn (NotDetected) Urine Cocaine Screen (NotDetected) U Marijuana (THC) Screen (NotDetected) Serum Alcohol mg/dL 11/04/ Range/Units 02:01 WBC (4.50-10.00) 10*3/uL RBC (4.40-5.60) 10*6/uL Hgb (13.0-17.0) g/dL Hct (39.6-50.0) % MCV (80.0-97.0) fL MCH (27.0-32.0) pg MCHC (32.0-37.0) g/dL Plt Count (140-440) 10*3/uL MPV (9.5-12.2) fL Immature Gran % (Auto) % Neutrophils % % Lymphocytes % % Monocytes % % Eosinophils % % Basophils % % Immature Gran # (0.00-0.04) 10*3/uL Neutrophils # (1.80-7.70) 10*3/uL Lymphocytes # (0.90-5.00) 10*3/uL Monocytes # (0.20-1.00) 10*3/uL Eosinophils # (0.04-0.35) 10*3/uL Basophils # (0.00-0.10) 10*3/uL Immature Plt Fraction (1.1-6.1) % PT (10.0-12.5) sec INR (<1.2) APTT (22.0-30.0) sec Carbon Monoxide, Quant 1.2 (<10.0) % Sodium (137-145) mmol/L Potassium (3.5-5.1) mmol/L Chloride (98-107) mmol/L Carbon Dioxide (22-30) mmol/L Anion Gap mmol/L BUN (9-20) mg/dL Creatinine (0.66-1.25) mg/dL Est GFR (CKD-EPI)AfAm (>60 ml/min/1.73 sqM) Est GFR (CKD-EPI)NonAf (>60 ml/min/1.73 sqM) Glucose (74-99) mg/dL POC Glucose (mg/dL) (70-110) mg/dL POC Glu Air Lift Operator ID Lactic Ac Sepsis Rflx Plasma Lactic Acid Oleg (0.7-2.0) mmol/L Calcium (8.4-10.2) mg/dL Total Bilirubin (0.2-1.3) mg/dL AST (17-59) U/L ALT (4-49) U/L Alkaline Phosphatase (38-126) U/L Troponin I (0.000-0.034) ng/mL Total Protein (6.3-8.2) g/dL Albumin (3.5-5.0) g/dL Urine Color Urine Appearance (Clear) Urine pH (5.0-8.0) Ur Specific [place] (1.001-1.035) Urine Protein (Negative) Urine Glucose (UA) (Negative) Urine Ketones (Negative) Urine Blood (Negative) Urine Nitrite (Negative) Urine Bilirubin (Negative) Urine Urobilinogen (<2.0) mg/dL Ur Leukocyte Esterase (Negative) Urine RBC (0-5) /hpf Urine WBC (0-5) /hpf Ur Squamous Epith Cells (0-4) /hpf Urine Bacteria (None) /hpf Cellular Casts (0) /lpf Hyaline Casts (0-2) /lpf Urine Mucus (None) /hpf Urine Opiates Screen (NotDetected) Ur Oxycodone Screen (NotDetected) Urine Methadone Screen (NotDetected) Ur Barbiturates Screen (NotDetected) U Tricyclic Antidepress (NotDetected) Ur Phencyclidine Scrn (NotDetected) Ur Amphetamines Screen (NotDetected) U Methamphetamines Scrn (NotDetected) U Benzodiazepines Scrn (NotDetected) Urine Cocaine Screen (NotDetected) U Marijuana (THC) Screen (NotDetected) Serum Alcohol mg/dL Disposition Clinical Impression: Altered mental status, Asthma exacerbation, Lactic acidosis Narrative: Suspected seizure with postictal period Disposition: ADMITTED IP TO THIS [facility] Condition: Serious Is patient prescribed a controlled substance at d/c from ED?: No
--- NOTE | 2024-11-04 00:32 | XR ---
EXAM: XR Chest, 1 View CLINICAL HISTORY: Altered mental status TECHNIQUE: Frontal view of the chest. COMPARISON: Chest radiograph 08/27/2024 FINDINGS: Lungs: Unremarkable. No consolidation. Pleural space: Unremarkable. No pneumothorax. Heart: Unremarkable. No cardiomegaly. Mediastinum: Unremarkable. Normal mediastinal contour. Bones/joints: Unremarkable. No acute fracture. IMPRESSION: No acute findings in the chest.
[2024-11-04 00:42] LABS: Basophils # (A) 0.06 10*3/uL (0.00-0.10); Basophils % (A) 0.5 %; Eosinophils # (A) 0.66 10*3/uL (0.04-0.35); Eosinophils % (A) 5.1 %; HCT 47.7 % (39.6-50.0); HGB 16.3 g/dL (13.0-17.0); Immature Platelet Fraction 1.9 % (1.1-6.1); Lymphocytes % (A) 24.8 %; MCHC 34.2 g/dL (32.0-37.0); MCV 90.9 fL (80.0-97.0); Mean Platelet Volume 9.7 fL (9.5-12.2); Monocytes # (A) 0.93 10*3/uL (0.20-1.00); Monocytes % (A) 7.2 %; Neutrophils # (A) 8.01 10*3/uL (1.80-7.70); Neutrophils % (A) 62.1 %; Platelet Count 278 10*3/uL (140-440); RBC 5.25 10*6/uL (4.40-5.60); RDW 12.7 % (11.5-14.5)
[2024-11-04 00:49] LABS: INR 1.1 (<1.2); Prothrombin Time 11.8 sec (10.0-12.5)
[2024-11-04 00:51] LABS: Appearance,Urine Clear (Clear); Bacteria,Urine Rare /hpf; Bilirubin,Urine Negative (Negative); Blood,Urine Moderate (Negative); Cellular Casts,Urine 4 /lpf (0); Color,Urine Light Yellow; Glucose,Urine (UA) Trace (Negative); Hyaline Casts,Urine 8 /lpf (0-2); Ketones,Urine Trace (Negative); Leukocyte Esterase,Urine Negative (Negative); Mucus,Urine Rare /hpf; Nitrite,Urine Negative (Negative); Protein,Urine 2+ (Negative); RBC,Urine 4 /hpf (0-5); Specific Gravity,Urine 1.018 (1.001-1.035); Squamous Epithelial Cell,Urine <1 /hpf (0-4); Urobilinogen,Urine <2.0 mg/dL (<2.0); WBC,Urine 6 /hpf (0-5)
[2024-11-04 00:51] LABS: ALT 87 U/L (4-49); AST 110 U/L (17-59); African American GFR (CKD) >90 (>60 ml/min/1.73 sqM); Albumin 5.1 g/dL (3.5-5.0); Alcohol 12 mg/dL; Alkaline Phosphatase 62 U/L (38-126); Anion Gap 24 mmol/L; Blood Urea Nitrogen 13 mg/dL (9-20); Calcium 9.5 mg/dL (8.4-10.2); Carbon Dioxide 16 mmol/L (22-30); Chloride 102 mmol/L (98-107); Glucose 127 mg/dL (74-99); Non-African American GFR(CKD) 80 (>60 ml/min/1.73 sqM); Potassium 3.7 mmol/L (3.5-5.1); Sodium 142 mmol/L (137-145); Total Bilirubin 0.6 mg/dL (0.2-1.3)
[2024-11-04] MEDS: LORazepam 1 MG/0.5 ML VIAL IV STA (00:55)
[2024-11-04 00:57] LABS: Amphetamine Screen,Urine Not Detected (NotDetected); Barbiturate Screen,Urine Not Detected (NotDetected); Benzodiazepines Screen,Urine Not Detected (NotDetected); Cocaine Screen,Urine Not Detected (NotDetected); Methadone Screen, Urine Not Detected (NotDetected); Opiate Screen,Urine Not Detected (NotDetected); Oxycodone Screen, Urine Not Detected (NotDetected); Phencyclidine Screen,Urine Not Detected (NotDetected); Tricyclic Antidepressant,Urine Not Detected (NotDetected); Urn Cannabinoid Scrn Detected (NotDetected)
[2024-11-04 01:16] LABS: Partial Thromboplastin Time 18.4 sec (22.0-30.0)
[2024-11-04] MEDS: ONDANSETRON 4 MG/2 ML VIAL IVP STA (01:35)
[2024-11-04] MEDS ORDERED: NALOXONE 0.4 MG/ML 1 ML VIAL IV PRN (03:10)
[2024-11-04] MEDS ORDERED: ALBUTEROL NEBULIZED 2.5 MG/3 ML INHALATION PRN (03:14)
[2024-11-04] MEDS: SODIUM CHLORIDE 0.9% 1,000 ML IV ONE (03:42)
--- NOTE | 2024-11-04 04:28 | CT ---
EXAM: CT Head Without Intravenous Contrast CLINICAL HISTORY: Altered mental status TECHNIQUE: Axial computed tomography images of the head/brain without intravenous contrast. CTDI is 47.1 mGy and DLP is 1205 mGy-cm. This CT exam was performed using one or more of the following dose reduction techniques: automated exposure control, adjustment of the mA and/or kV according to patient size, and/or use of iterative reconstruction technique. COMPARISON: No relevant prior studies available. FINDINGS: Brain: Unremarkable. No intracranial hemorrhage, mass-effect or midline shift. No abnormal extra axial fluid. No evidence of acute infarct. Ventricles: Unremarkable. No ventriculomegaly. Bones/joints: Unremarkable. No acute fracture. Soft tissues: Unremarkable. Sinuses: There is mild mucosal thickening of the ethmoid and maxillary sinuses. The remaining visualized paranasal sinuses are clear. Mastoid air cells: Unremarkable as visualized. No mastoid effusion. IMPRESSION: No acute intracranial finding.
[2024-11-04] MEDS: SODIUM CHLORIDE 0.9% 1,000 ML IV SCH (05:11)
--- NOTE | 2024-11-04 06:07 | P.CNPUL ---
History of Present Illness Consult date: 11/04/24 Requesting physician: Mack Sanchez Reason for consult: asthma Chief complaint: Respiratory distress History of present illness: Patient is a 24-year-old male with past medical history significant for asthma. His primary care provider is Dr. Pope. Currently, his asthma is being managed with a Symbicort inhaler, DuoNebs, and albuterol rescue inhaler. Reportedly, has had 3 ER visits for asthma exacerbation in the last 6 months. According to patient's mother, he was out working in the barn on his car all day. Came back in the house, and later that evening developed respiratory distress. He tried his albuterol nebulizer without much improvement. Soon after he became cyanotic, diaphoretic, and unresponsive. According to mother, he was foaming at the mouth and urinated himself. There was some tongue biting and blood coming from his mouth. She called EMS and they told her to start CPR. When EMS arrived the patient had a pulse and CPR was not continued. They contemplated intubating the patient, however, patient soon became more responsive and respiratory status appeared adequate. He did receive supplemental oxygen, nebulized albuterol treatments, epinephrine 0.3 mg IM, and 125 mg of Solu-Medrol. Patient was transferred to [facility] ED. Placed on a 15 L nonrebreather on arrival. He was minimally responsive on arrival with his jaw clenched. No tonic-clonic activity was reported, however, there was suspicion for possible seizure. According to parents, patient has no seizure history. Did receive 2 mg of IV Ativan in the ED. Brain CT did not show any acute intracranial process. EEG ordered. Neurology consultation was placed. Workup in the emergency department including a chest x-ray showing hyperinflation. No obvious focal consolidations, pleural effusions, rib fracture, pneumothoraces. Labs including his CBC with a WBC count of 12.9, hemoglobin 16.3, platelets 278. CMP: Sodium 142, potassium 3.7, chloride 102, serum bicarb 16, BUN 13, creatinine 1.27, glucose 127. Lactic 7.9. Normal saline infusing at 130 mL/h. LFTs mildly elevated. Troponin less than 0.012. Urine toxicology screen positive for marijuana. Serum alcohol level 12. Carbon monoxide 1.2%. Patient currently being evaluated in the emergency department. He is lethargic, but wakes up and answers orientation questions appropriately. He does not recall the events ment ioned above. His breathing is nonlabored. He is on room air. Does not appear to be in any respiratory distress. Actually, denies any difficulty in breathing at the moment. No coughing. No wheezing. No accessory muscle use. No conversational dyspnea. Multiple soft superficial abrasions on his chest. Patient does vape, and also smokes marijuana. Mother states that patient is occasionally noncompliant with his inhalers. Father states his asthma could be triggered by dust in the barn, as they were recently cleaning the inside. Remarked that he was in the barn last time his asthma was exacerbated. No infectious like symptoms reported. Current vital signs: Temperature 98.5 F, heart rate 72 bpm, blood pressure 106/57 mmHg, nontachypneic, SpO2 recorded at 94% on room air. Review of Systems ROS unobtainable: due to mental status Past Medical History Past Medical History: Asthma History of Any Multi-Drug Resistant Organisms: None Reported Past Surgical History: Ear Surgery Additional Past Surgical History / Comment(s): Tubes in ears Past Psychological History: No Psychological Hx Reported Smoking Status: Current every day smoker Past Alcohol Use History: None Reported Past Drug Use History: None Reported Medications and Allergies Home Medications Medication Instructions Recorded Confirmed Type Albuterol Inhaler [Ventolin 2 puff INHALATION RT-Q6H PRN 10/13/13 02/14/19 History Inhaler] Ipratropium-Albuterol Nebulize 3 ml INHALATION QID PRN 30 Days 08/27/24 Rx [Duoneb 0.5 mg-3 mg/3 ml Soln] #90 ml predniSONE [Deltasone] 20 mg PO BID 4 Days #8 tab 08/27/24 Rx Allergies Allergy/AdvReac Type Severity Reaction Status Date / Time peanut Allergy Rash/Hives Verified 11/04/24 00:11 Physical Exam Vitals: Vital Signs Pulse Resp BP Pulse Ox 11/04/24 00:26 101 H 20 121/72 100 11/03/24 23:58 80 22 145/95 94 L Intake and Output 11/03/24 11/03/24 11/04/24 14:59 22:59 06:59 Other: Weight 72.575 kg GENERAL EXAM: Lethargic, 24-year-old male, will wake to verbal stimuli, then quickly falls back to sleep. No respiratory distress noted. HEAD: Normocephalic and atraumatic EYES: Normal reaction of pupils, equal and approximate 7-8 mm in size NOSE: Clear with pink turbinates. THROAT: No erythema or exudates. NECK: No masses, no JVD. CHEST: No chest wall deformity. Multiple superficial abrasions to the chest. N o crepitus or subcu air LUNGS: Equal air entry with no crackles, wheeze, rhonchi or dullness. On room air. No conversational dyspnea or accessory muscle use. CVS: S1 and S2 normal with no audible murmur, regular rhythm. No extra heart sounds ABDOMEN: No hepatosplenomegaly, active bowel sounds, no guarding or rigidity. SPINE: No scoliosis or deformity SKIN: No rashes CENTRAL NERVOUS SYSTEM: Lethargic, no seizure activity noted, no focal deficits, tone is normal in all 4 extremities. EXTREMITIES: There is no peripheral edema, clubbing, or cyanosis. Peripheral pulses are intact. Results - Laboratory Findings CBC and BMP: 11/04/24 00:15 11/04/24 00:15 PT/INR, D-dimer PT 11.8 sec (10.0-12.5) 11/04/24 00:15 INR 1.1 (<1.2) 11/04/24 00:15 Abnormal lab findings: Abnormal Labs 11/04/24 11/04/24 11/04/24 00:05 00:05 00:15 WBC 12.90 H Neutrophils # 8.01 H Eosinophils # 0.66 H APTT Carbon Dioxide Creatinine Glucose POC Glucose (mg/dL) Plasma Lactic Acid Oleg AST ALT Albumin Urine Protein 2+ H Urine Glucose (UA) Trace H Urine Ketones Trace H Urine Blood Moderate H Urine WBC 6 H Urine Bacteria Rare H Hyaline Casts 8 H Urine Mucus Rare H U Marijuana (THC) Screen Detected H 11/04/24 11/04/24 11/04/24 00:15 00:15 00:15 WBC Neutrophils # Eosinophils # APTT 18.4 L Carbon Dioxide 16 L Creatinine 1.27 H Glucose 127 H POC Glucose (mg/dL) Plasma Lactic Acid Oleg 7.9 H* AST 110 H ALT 87 H Albumin 5.1 H Urine Protein Urine Glucose (UA) Urine Ketones Urine Blood Urine WBC Urine Bacteria Hyaline Casts Urine Mucus U Marijuana (THC) Screen 11/04/24 00:17 WBC Neutrophils # Eosinophils # APTT Carbon Dioxide Creatinine Glucose POC Glucose (mg/dL) 117 H Plasma Lactic Acid Oleg AST ALT Albumin Urine Protein Urine Glucose (UA) Urine Ketones Urine Blood Urine WBC Urine Bacteria Hyaline Casts Urine Mucus U Marijuana (THC) Screen - Diagnostic Findings Chest x-ray: image reviewed Assessment and Plan Assessment: Possible asthma exacerbation Rule out seizure activity Acute hypoxemic respiratory failure, possibly secondary to above, improved Lactic acidosis, 7.9 and is improved to 1.8 Anion gap metabolic acidosis Acute kidney injury, creatinine 1.27 Marijuana smoker Vaping/e-cigarette use History of moderate to severe persistent asthma, being managed by his primary care provider on an outpatient basis with a combination of Symbicort inhaler twice daily, DuoNebs as needed, and albuterol rescue inhaler as needed. History of seasonal allergies Plan: Previously on a 15 L nonrebreather, this is improved on room air Patient did receive layperson CPR. When EMS arrived, patient had a pulse. He was initially minimally responsive, did not require intubation, his mentation and respiratory status improved Chest x-ray reviewed, hyperinflation. No obvious focal consolidations, rib fractures, pleural effusions, pneumothoraces. Continue combination of DuoNebs and prednisone 60 mg daily Continue Symbicort inhaler Neurology is consulted for evaluation of possible seizure activity Brain CT did not show any acute intracranial hemorrhage, mass effect or midline shift. EEG is ordered Urine toxicology screen unremarkable except for marijuana Serum alcohol level 12 Carbon monoxide level unremarkable Case to be reviewed with my supervising physician, and additional recommendations to follow I have personally seen and examined the patient, performed the documentation and the assessment and plan as written. Number of minutes spent on the visit:20 Time with Patient: Greater than 30
--- NOTE | 2024-11-04 07:39 | P.HPIM ---
History of Present Illness This is a pleasant 64 years old male with past medical history of asthma Presents because of periods of unresponsiveness suspicious for seizure-like activity. Also there is some concerns of some shortness of breath in view of history of asthma he was admitted for asthma attack but currently he is not short of breath and is not wheezing Information were obtained with the patient and mother at bedside. Mother witnessed the incident where he become unresponsive and become a blue. Patient mother confirms to me she noticed periods of stiffness all over his body less than followed by tongue biting and urinating himself. However she denies presence of shakiness. Patient has been confused still picked up by EMS and came to emergency room. Patient denies headache or dizziness weakness or numbness. No chest pain or dyspnea. No specific GI surgical symptoms. He vapes nicotine but he denies alcohol or illicit drugs. Patient counseled to quit and he agrees. He is hemodynamically stable. Afebrile. He has mild leukocytosis of 12.9, creatinine slightly up at 1.27. Liver enzymes mildly elevated. Lactic acid was 7.9 came back to 1.8 which is the reference range. Urine drug screen is positive for marijuana. Serum alcohol was 12. Chest x-ray was negative but showing hyperinflated chest EKG showing sinus rhythm at [address]-T changes and QTc 441. CT of the brain is negative for acute process. EEG was ordered. Patient was admitted with prednisone 60 mg and normal saline with 30 mL/h. He was not started on seizure medication other than as needed Ativan Review of Systems Review of systems CONSTITUTIONAL: No fever, no malaise, no fatigue. HEENT: No recent visual problems or hearing problems. Denied any sore throat. CARDIOVASCULAR: No orthopnea, PND, no palpitations, no syncope. PULMONARY: No shortness of breath, no cough, no hemoptysis. GASTROINTESTINAL: No diarrhea, no nausea, no vomiting, no abdominal pain. Normoactive bowel sounds. NEUROLOGICAL: No headaches, no weakness, no numbness. HEMATOLOGICAL: Denies any bleeding or petechiae. GENITOURINARY: Denies any burning micturition, frequency, or urgency. MUSCULOSKELETAL/RHEUMATOLOGICAL: Denies any joint pain, swelling, or any muscle pain. ENDOCRINE: Denies any polyuria or polydipsia. Past Medical History Past Medical History: Asthma History of Any Multi-Drug Resistant Organisms: None Reported Past Surgical History: Ear Surgery Additional Past Surgical History / Comment(s): Tubes in ears Past Psychological History: No Psychological Hx Reported Smoking Status: Current every day smoker Past Alcohol Use History: None Reported Past Drug Use History: None Reported Medications and Allergies Home Medications Medication Instructions Recorded Confirmed Type Albuterol Inhaler [Ventolin 2 puff INHALATION RT-Q6H PRN 10/13/13 02/14/19 History Inhaler] Ipratropium-Albuterol Nebulize 3 ml INHALATION QID PRN 30 Days 08/27/24 Rx [Duoneb 0.5 mg-3 mg/3 ml Soln] #90 ml predniSONE [Deltasone] 20 mg PO BID 4 Days #8 tab 08/27/24 Rx Allergies Allergy/AdvReac Type Severity Reaction Status Date / Time peanut Allergy Rash/Hives Verified 11/04/24 00:11 Physical Exam Vitals: Vital Signs Temp Pulse Resp BP Pulse Ox 11/04/24 06:33 81 18 116/51 98 11/04/24 03:15 98.5 F 72 17 106/57 93 L 11/04/24 00:26 101 H 20 121/72 100 11/03/24 23:58 80 22 145/95 94 L Intake and Output 11/03/24 11/04/24 11/04/24 22:59 06:59 14:59 Other: Weight 72.575 kg GENERAL: The patient is alert and oriented x3, not in any acute distress. Well developed, well nourished. HEENT: Pupils are round and equally reacting to light. EOMI. No scleral icterus. No conjunctival pallor. Normocephalic, atraumatic. No pharyngeal erythema. No thyromegaly. CARDIOVASCULAR: S1 and S2 present. No murmurs, rubs, or gallops. PULMONARY: Chest is clear to auscultation, no wheezing , no crackles. ABDOMEN: Soft, nontender, nondistended, normoactive bowel sounds. No palpable organomegaly. MUSCULOSKELETAL: No joint swelling or deformity. EXTREMITIES: No cyanosis, clubbing, or pedal edema. NEUROLOGICAL: Gross neurological examination did not reveal any focal deficits. SKIN: No rashes. no petechiae. Results CBC & Chem 7: 11/04/24 00:15 11/04/24 00:15 Labs: Abnormal Lab Results - Last 24 Hours (Table) 11/04/24 11/04/24 11/04/24 Range/Units 00:05 00:05 00:15 WBC 12.90 H (4.50-10.00) 10*3/uL Neutrophils # 8.01 H (1.80-7.70) 10*3/uL Eosinophils # 0.66 H (0.04-0.35) 10*3/uL APTT (22.0-30.0) sec Carbon Dioxide (22-30) mmol/L Creatinine (0.66-1.25) mg/dL Glucose (74-99) mg/dL POC Glucose (mg/dL) (70-110) mg/dL Plasma Lactic Acid Oleg (0.7-2.0) mmol/L AST (17-59) U/L ALT (4-49) U/L Albumin (3.5-5.0) g/dL Urine Protein 2+ H (Negative) Urine Glucose (UA) Trace H (Negative) Urine Ketones Trace H (Negative) Urine Blood Moderate H (Negative) Urine WBC 6 H (0-5) /hpf Urine Bacteria Rare H (None) /hpf Hyaline Casts 8 H (0-2) /lpf Urine Mucus Rare H (None) /hpf U Marijuana (THC) Screen Detected H (NotDetected) 11/04/24 11/04/24 11/04/24 Range/Units 00:15 00:15 00:15 WBC (4.50-10.00) 10*3/uL Neutrophils # (1.80-7.70) 10*3/uL Eosinophils # (0.04-0.35) 10*3/uL APTT 18.4 L (22.0-30.0) sec Carbon Dioxide 16 L (22-30) mmol/L Creatinine 1.27 H (0.66-1.25) mg/dL Glucose 127 H (74-99) mg/dL POC Glucose (mg/dL) (70-110) mg/dL Plasma Lactic Acid Oleg 7.9 H* (0.7-2.0) mmol/L AST 110 H (17-59) U/L ALT 87 H (4-49) U/L Albumin 5.1 H (3.5-5.0) g/dL Urine Protein (Negative) Urine Glucose (UA) (Negative) Urine Ketones (Negative) Urine Blood (Negative) Urine WBC (0-5) /hpf Urine Bacteria (None) /hpf Hyaline Casts (0-2) /lpf Urine Mucus (None) /hpf U Marijuana (THC) Screen (NotDetected) 11/04/24 Range/Units 00:17 WBC (4.50-10.00) 10*3/uL Neutrophils # (1.80-7.70) 10*3/uL Eosinophils # (0.04-0.35) 10*3/uL APTT (22.0-30.0) sec Carbon Dioxide (22-30) mmol/L Creatinine (0.66-1.25) mg/dL Glucose (74-99) mg/dL POC Glucose (mg/dL) 117 H (70-110) mg/dL Plasma Lactic Acid Oleg (0.7-2.0) mmol/L AST (17-59) U/L ALT (4-49) U/L Albumin (3.5-5.0) g/dL Urine Protein (Negative) Urine Glucose (UA) (Negative) Urine Ketones (Negative) Urine Blood (Negative) Urine WBC (0-5) /hpf Urine Bacteria (None) /hpf Hyaline Casts (0-2) /lpf Urine Mucus (None) /hpf U Marijuana (THC) Screen (NotDetected) Assessment and Plan Assessment: Acute tonic seizure disorder. Also patient serum alcohol level slightly elevated on admission and there is suspicion of alcohol withdrawal seizure although patient denies drinking alcohol. Associated with urine incontinence and tongue biting Very mild asthma attack, currently resolved Substance abuse with marijuana Mild acute kidney injury Mild leukocytosis and transaminitis most likely secondary to seizure effect Elevated lactic acid resolved Mildly elevated alcohol level suspicious for alcohol use disorder Plan: Continue with Ativan as needed Neurology consult EEG ordered Patient started on steroids however this will be tapered slowly pulmonary team following Agree with normal saline 3 mL for creatinine Further recommendation based on the clinical course GI prophylaxis: Protonix DVT prophylaxis: Heparin Prognosis still guarded
[2024-11-04] MEDS: SYMBICORT 160-4.5 MCG INHALER INHALATION SCH (07:57)
[2024-11-04] MEDS ORDERED: predniSONE 20 MG TAB PO SCH (09:00)
[2024-11-04] MEDS: predniSONE 20 MG TAB PO SCH (09:03)
[2024-11-04] MEDS: PANTOPRAZOLE 40 MG/10 ML VIAL IV SCH (09:03)
[2024-11-04] MEDS: HEPARIN SODIUM,PORCINE 5,000 UNIT/ML 1 ML VIAL SQ SCH (09:05)
[2024-11-04] MEDS ORDERED: ACETAMINOPHEN TAB 325 MG TAB PO PRN (09:27)
[2024-11-04] MEDS: ACETAMINOPHEN TAB 325 MG TAB PO STA (09:51)
--- NOTE | 2024-11-04 19:29 | P.CNNES ---
History of Present Illness Consult date: 11/04/24 Requesting physician: Mack Sanchez Reason for Consult: suspected seizure with prolonged post-ictal period History of Present Illness: Patient is a 24-year-old male with longstanding history of asthma was brought to the hospital by ambulance yesterday at 11:55 PM for possible syncope versus seizure. Patient's parents and significant other were all present at the time of this interview. They mentioned that patient had an acute episode of asthma and he could not breathe. He was using all accessory muscles to help breathe. He started turning blue, foaming from the mouth and started having some convulsi ve type activity. He did lose control of urine, but did not bite his tongue. He was lowered to the ground and his mother started chest compression. When firefighters got there, his pulse ox was 42. He was given aggressive treatment for asthma by the EMS. Intubation was attempted but was unsuccessful. As per EMS flowsheet when they arrived, patient was having difficulty breathing, possible asthma attack. Apparently patient has been cleaning the garage out and there was a lot of dust and patient is allergic. Patient had come in with some respiratory difficulties and gave himself 2 breathing treatments but did not seem to help. Mom stated that when he went unresponsive and stopped breathing after calling 911 and then was instructed to give him CPR. Upon arrival, patient was breathing very slowly, near agonal breathing. Patient was pale diaphoretic. Patient remained unresponsive. While en route to the hospital, patient began to moan and open his eyes on his own and his skin dried up. Patient did have an episode where his tongue swelled up causing him some respiratory distress. Patient given Benadryl and within a minute patient's tongue went back to normal. Patient was noted to be incontinent. No previous history of seizures. Patient's blood pressure at the scene was 130/62, pulse rate 86 respiration 12 saturation 100%. Blood glucose 146. Pt recieved 3 duoneb, 0.3mg epi IM, 1mg narcan, 50mg benedryl, 125 solumedrol, 500ml 0.[address] with EMS. Vital signs on arrival blood pressure 145/95 pulse rate 80 temperature 98.5. Blood test showed WBC 12.90, hemoglobin 47 normal platelets. PT PTT normal. Carbon monoxide normal. Basic metabolic panel normal. Lactate 7.9, which came down to 1.8. AST 119 ALT 87. Troponin negative, UA negative. Urine drug screen positive for marijuana. Blood alcohol level is borderline 12. Chest x- ray showed no acute findings in the chest. EKG showed sinus rhythm. CT head revealed no acute intracranial process. Patient denies any previous history of seizure. No family history of epilepsy. Patient did have history of some minor concussions while playing football while he was in high school between age [age]. He was never evaluated in the ER. Patient vapes nicotine and marijuana. Smokes weed, occasional drinks. Review of Systems All pertinent positive and negative review of systems mentioned in the HPI, otherwise unremarkable. Past Medical History Past Medical History: Asthma History of Any Multi-Drug Resistant Organisms: None Reported Past Surgical History: Ear Surgery Additional Past Surgical History / Comment(s): Tubes in ears Past Psychological History: No Psychological Hx Reported Smoking Status: Current every day smoker Past Alcohol Use History: None Reported Past Drug Use History: None Reported Medications and Allergies Home Medications Medication Instructions Recorded Confirmed Type Albuterol Inhaler [Ventolin 2 puff INHALATION RT-Q6H PRN 10/13/13 11/04/24 History Inhaler] Albuterol Nebulized [Ventolin 2.5 mg INHALATION RT-TID PRN 11/04/24 11/04/24 History Nebulized] Budesonide/Formoterol Fumarate 2 puff INHALATION RT-BID 11/04/24 11/04/24 History [Breyna 160-4.5 Mcg Inhaler] Allergies Allergy/AdvReac Type Severity Reaction Status Date / Time peanut Allergy Rash/Hives Verified 11/04/24 11:15 Physical Examination - Vital Signs Vital Signs: Vital Signs Temp Pulse Resp BP Pulse Ox 11/04/24 08:55 87 18 117/69 96 11/04/24 06:33 81 18 116/51 98 11/04/24 03:15 98.5 F 72 17 106/57 93 L 11/04/24 00:26 101 H 20 121/72 100 11/03/24 23:58 80 22 145/95 94 L Intake and Output 11/04/24 11/04/24 11/04/24 06:59 14:59 22:59 Other: Weight 72.575 kg Patient is a young male, in no acute distress. Patient is alert awake oriented to time place and person. Speech and language functions are normal. Patient can name and repeat very well. No aphasia or dysarthria. Attention, concentration and fund of knowledge is adequate. On cranial nerve examination, pupils are equal, round and reacting to light, visual jose are full on confrontation, with no neglect on double simultaneous stimulation. Extraocular muscles are intact with no nystagmus. Face is symmetric, tongue protrudes to the midline. Palatal elevation and sensation normal, hearing and shoulder shrug normal, facial sensation normal. No evidence of tongue bite alfredo. On muscle strength testing, there is no pronator drift and the strength is normal in arms and legs distally and proximally. Deep tendon reflexes are symmetric 1+ in the arms and legs and plantars downgoing. Sensory to touch is equal with no neglect on double simultaneous stimulation. Cerebellar function showed no ataxia for [id number] testing. No dysdiadochokinesia. No ataxia for [id number] testing on either side. Tone and bulk of muscles normal. Gait deferred.. On general examination, there is no carotid bruit or murmur, S1-S2 audible. Chest is clear on consultation. Abdomen is soft nontender. No organomegaly, bowel sounds present. Peripheral pulses are present. No peripheral edema. Results - Laboratory Findings CBC and BMP: 11/05/24 06:43 11/05/24 06:43 Abnormal Lab Findings: Abnormal Labs 11/04/24 11/04/24 11/04/24 00:05 00:05 00:15 WBC 12.90 H Neutrophils # 8.01 H Eosinophils # 0.66 H APTT Carbon Dioxide Creatinine Glucose POC Glucose (mg/dL) Plasma Lactic Acid Oleg AST ALT Albumin Urine Protein 2+ H Urine Glucose (UA) Trace H Urine Ketones Trace H Urine Blood Moderate H Urine WBC 6 H Urine Bacteria Rare H Hyaline Casts 8 H Urine Mucus Rare H U Marijuana (THC) Screen Detected H 11/04/24 11/04/24 11/04/24 00:15 00:15 00:15 WBC Neutrophils # Eosinophils # APTT 18.4 L Carbon Dioxide 16 L Creatinine 1.27 H Glucose 127 H POC Glucose (mg/dL) Plasma Lactic Acid Oleg 7.9 H* AST 110 H ALT 87 H Albumin 5.1 H Urine Protein Urine Glucose (UA) Urine Ketones Urine Blood Urine WBC Urine Bacteria Hyaline Casts Urine Mucus U Marijuana (THC) Screen 11/04/24 00:17 WBC Neutrophils # Eosinophils # APTT Carbon Dioxide Creatinine Glucose POC Glucose (mg/dL) 117 H Plasma Lactic Acid Oleg AST ALT Albumin Urine Protein Urine Glucose (UA) Urine Ketones Urine Blood Urine WBC Urine Bacteria Hyaline Casts Urine Mucus U Marijuana (THC) Screen Assessment and Plan Assessment: * Possible convulsive syncope due to acute onset of asthmatic attack with impending respiratory arrest. * Lactic acidosis, due to above * Elevated hepatic enzymes * Marijuana use * Vapes * Borderline blood alcohol level 12 Plan: * EEG was performed, which was normal awake drowsy and sleep EEG. No focal, lateralized or epileptiform activity was seen. * Patient never has any history of seizures. This event appears more like convulsion possibly induced from acute asthmatic attack, with impending respiratory failure. Patient received aggressive treatment of asthma by the EMS. * No indication for antiepileptic medication. * For other medical conditions, would defer to IM. * Recommend stop vaping, marijuana use. * Patient desperate to go home. Neurologically clear for discharge. * Thank you for the consult.
[2024-11-04] MEDS: MONTELUKAST 10 MG TAB PO SCH (20:29)
[2024-11-05 06:58] LABS: Basophils # (A) 0.01 10*3/uL (0.00-0.10); Basophils % (A) 0.1 %; Eosinophils # (A) 0.01 10*3/uL (0.04-0.35); Eosinophils % (A) 0.1 %; HCT 42.3 % (39.6-50.0); HGB 14.5 g/dL (13.0-17.0); Lymphocytes # (A) 1.86 10*3/uL (0.90-5.00); Lymphocytes % (A) 18.8 %; MCH 30.6 pg (27.0-32.0); MCHC 34.3 g/dL (32.0-37.0); MCV 89.2 fL (80.0-97.0); Mean Platelet Volume 9.5 fL (9.5-12.2); Monocytes # (A) 0.99 10*3/uL (0.20-1.00); Neutrophils # (A) 7.01 10*3/uL (1.80-7.70); Neutrophils % (A) 70.7 %; Platelet Count 257 10*3/uL (140-440); RBC 4.74 10*6/uL (4.40-5.60); RDW 12.7 % (11.5-14.5); WBC 9.91 10*3/uL (4.50-10.00)
[2024-11-05 07:21] LABS: ALT 83 U/L (4-49); AST 118 U/L (17-59); African American GFR (CKD) >90 (>60 ml/min/1.73 sqM); Alkaline Phosphatase 57 U/L (38-126); Anion Gap 8 mmol/L; Bilirubin, Delta 0.1 mg/dL (0.0-0.2); Blood Urea Nitrogen 18 mg/dL (9-20); Calcium 9.6 mg/dL (8.4-10.2); Carbon Dioxide 25 mmol/L (22-30); Chloride 104 mmol/L (98-107); Glucose 97 mg/dL (74-99); Non-African American GFR(CKD) >90 (>60 ml/min/1.73 sqM); Potassium 4.5 mmol/L (3.5-5.1); Sodium 137 mmol/L (137-145); Total Bilirubin 1.1 mg/dL (0.2-1.3); Total Protein 6.7 g/dL (6.3-8.2)
[2024-11-05 11:41] VITALS: BP 120/65; PULSE 61; RESP 18; TEMP 98.4
--- NOTE | 2024-11-05 13:00 | P.CRDCN ---
History of Present Illness History of present illness: HISTORY OF PRESENT ILLNESS: This is a 24-year-old male with a past medical history significant for asthma and nicotine dependence. Patient does not follow with a chyron operator. We have been asked to see the patient in consultation for dropped beat on telemetry/unresponsive. Patient examined at the bedside. Patients family present. Patient states he was cleaning his garage in the morning. He states later on in the day, he started to feel short of breath. He took two breathing treatments and then became more SOB. He apparently started to turn blue and his girlfriend yelled for his mom. His mom called 911 and started CPR. Patient did come to shortly afterwards per patients mom. Patient denies ever passing out in the past. He has 3 siblings who have never had any episodes of passing out either. DIAGNOSTICS: - EKG reveals sinus bradycardia with early repolarization. - Chest xray no acute findings in the chest. - Laboratory data: WBC 9.91. Hemoglobin 14.5. Platelet count 257. Sodium 137. Potassium 4.5. He BUN 18. Creatinine 0.98. Lactic acid 7.9. Troponin negative x 1. - Current home cardiac medications include none - Echocardiogram completed in December 2020 revealed ejection fraction 50 to 55% with trace MR and trace TR REVIEW OF SYSTEMS: At the time of my exam: CONSTITUTIONAL: Denies fever or chills. HEENT: Denies blurred vision, vision changes, or eye pain. Denies hemoptysis CARDIOVASCULAR: Denies chest pain. Denies orthopnea. Denies PND. Denies palpitations RESPIRATORY: Denies shortness of breath. GASTROINTESTINAL: Denies abdominal pain. Denies nausea or vomiting. HEMATOLOGIC: Denies bleeding disorders. GENITOURINARY: Denies any blood in urine. SKIN: Denies pruitis. Denies rash. PHYSICAL EXAM: VITAL SIGNS: Reviewed. GENERAL: Well-developed in no acute distress. HEENT: Head is normocephalic. Pupils are equal, round. Sclerae anicteric. Mucous membranes of the mouth are moist. Neck supple. No JVD or thyromegaly LUNGS: Respirations even and unlabored. Lungs essentially clear to auscultation bilaterally. HEART: Regular rate and rhythm. S1 and S2 heard. ABDOMEN: Soft. Nondistended. Nontender. EXTREMITIES: Normal range of motion. No clubbing or cyanosis. Peripheral pulses intact. No lower extremity edema NEUROLOGIC: Awake and alert. Oriented x 3. ASSESSMENT: Episode of unresponsiveness, likely secondary to asthma attack No evidence of heart block Marijuana use Nicotine dependence PLAN: Telemetry reviewed without evidence of heart block Recommend abstinence from vaping and marijuana Patient may be discharged home today from a cardiac standpoint Nurse practitioner note has been reviewed by physician. Signing provider agrees with the documented findings, assessment, and plan of care documented by RECORDIST CHIEF as a scribe. Past Medical History Past Medical History: Asthma History of Any Multi-Drug Resistant Organisms: None Reported Past Surgical History: Ear Surgery Additional Past Surgical History / Comment(s): Tubes in ears Past Psychological History: No Psychological Hx Reported Smoking Status: Current every day smoker Past Alcohol Use History: None Reported Past Drug Use History: None Reported Medications and Allergies Home Medications Medication Instructions Recorded Confirmed Type Albuterol Inhaler [Ventolin 2 puff INHALATION RT-Q6H PRN 10/13/13 11/04/24 History Inhaler] Albuterol Nebulized [Ventolin 2.5 mg INHALATION RT-TID PRN 11/04/24 11/04/24 History Nebulized] Budesonide/Formoterol Fumarate 2 puff INHALATION RT-BID 11/04/24 11/04/24 History [Breyna 160-4.5 Mcg Inhaler] Allergies Allergy/AdvReac Type Severity Reaction Status Date / Time peanut Allergy Rash/Hives Verified 11/04/24 11:15 Physical Exam Vitals: Vital Signs Temp Pulse Pulse Resp BP BP Pulse Ox 11/05/24 11:40 98.4 F 61 18 120/65 97 11/05/24 08:00 98.2 F 59 L 20 122/77 91 L 11/05/24 03:25 97.9 F 52 L 16 123/57 97 11/04/24 23:08 98.0 F 80 16 101/57 99 11/04/24 20:23 98.0 F 43 L 16 126/73 99 11/04/24 18:00 59 L 17 102/64 99 Intake and Output 11/04/24 11/05/24 11/05/24 22:59 06:59 14:59 Other: Voiding Method Toilet Toilet # Voids 1 2 Weight 72.575 kg 66.5 kg Results 11/05/24 06:43 11/05/24 06:43 Cardiac Enzymes 11/05/24 Range/Units 06:43 AST 118 H (17-59) U/L CBC 11/05/24 Range/Units 06:43 WBC 9.91 (4.50-10.00) 10*3/uL RBC 4.74 (4.40-5.60) 10*6/uL Hgb 14.5 (13.0-17.0) g/dL Hct 42.3 (39.6-50.0) % Plt Count 257 (140-440) 10*3/uL Comprehensive Metabolic Panel 11/05/24 Range/Units 06:43 Sodium 137 (137-145) mmol/L Potassium 4.5 (3.5-5.1) mmol/L Chloride 104 (98-107) mmol/L Carbon Dioxide 25 (22-30) mmol/L BUN 18 (9-20) mg/dL Creatinine 0.98 (0.66-1.25) mg/dL Glucose 97 (74-99) mg/dL Calcium 9.6 (8.4-10.2) mg/dL Unconjugated Bilirubin 1.0 (0.0-1.1) mg/dL AST 118 H (17-59) U/L ALT 83 H (4-49) U/L Alkaline Phosphatase 57 (38-126) U/L Total Protein 6.7 (6.3-8.2) g/dL Albumin 4.0 (3.5-5.0) g/dL Current Medications Generic Name Dose Route Start Last Admin Trade Name Freq PRN Reason Stop Dose Admin Acetaminophen 325 mg 11/04/24 09:27 Acetaminophen Tab 325 Mg Tab PO Q6HR PRN Fever and/ or Mild Pain Albuterol Sulfate 2.5 mg 11/04/24 03:14 Albuterol Nebulized 2.5 Mg/3 Ml INHALATION Q4H PRN Bronchospasm Budesonide/Formoterol Fumarate 2 puff 11/04/24 08:00 11/05/24 08:25 Symbicort 160-4.5 Mcg Inhaler INHALATION 2 puff RT-BID GIL Administration Heparin Sodium (Porcine) 5,000 unit 11/04/24 09:00 11/05/24 08:24 Heparin Sodium,Porcine 5,000 Unit/Ml 1 Ml Vial SQ Not Given Q12HR GIL Sodium Chloride 1,000 mls @ 130 mls/hr 11/04/24 03:15 11/05/24 11:25 Saline 0.9% IV Not Given .Q7H42M GIL Montelukast Sodium 10 mg 11/04/24 21:00 11/04/24 20:29 Montelukast 10 Mg Tab PO 10 mg HS GIL Administration Naloxone HCl 0.2 mg 11/04/24 03:10 Naloxone 0.4 Mg/Ml 1 Ml Vial IV Q2M PRN Opioid Reversal Pantoprazole Sodium 40 mg 11/04/24 09:00 11/05/24 08:27 Pantoprazole 40 Mg/10 Ml Vial IV 40 mg DAILY GIL Administration Prednisone 40 mg 11/04/24 09:00 11/05/24 08:26 Prednisone 20 Mg Tab PO 40 mg DAILY GIL Administration Intake and Output 11/04/24 11/05/24 11/05/24 22:59 06:59 14:59 Other: Voiding Method Toilet Toilet # Voids 1 2 Weight 72.575 kg 66.5 kg 11/05/24 06:43 11/05/24 06:43
--- NOTE | 2024-11-05 14:01 | P.PN ---
Subjective Progress Note Date: 11/05/24 Patient is a 24-year-old male with past medical history significant for asthma. His primary care provider is Dr. Pope. Currently, his asthma is being managed with a Symbicort inhaler, DuoNebs, and albuterol rescue inhaler. Reportedly, has had 3 ER visits for asthma exacerbation in the last 6 months. According to patient's mother, he was out working in the barn on his car all day. Came back in the house, and later that evening developed respiratory distress. He tried his albuterol nebulizer without much improvement. Soon after he became cyanotic, diaphoretic, and unresponsive. According to mother, he was foaming at the mouth and urinated himself. There was some tongue biting and blood coming from his mouth. She called EMS and they told her to start CPR. When EMS arrived the patient had a pulse and CPR was not continued. They contemplated intubating the patient, however, patient soon became more responsive and respiratory status appeared adequate. He did receive supplemental oxygen, nebulized albuterol treatments, epinephrine 0.3 mg IM, and 125 mg of Solu-Medrol. Patient was t ransferred to [facility] ED. Placed on a 15 L nonrebreather on arrival. He was minimally responsive on arrival with his jaw clenched. No tonic-clonic activity was reported, however, there was suspicion for possible seizure. According to parents, patient has no seizure history. Did receive 2 mg of IV Ativan in the ED. Brain CT did not show any acute intracranial process. EEG ordered. Neurology consultation was placed. Workup in the emergency department including a chest x-ray showing hyperinflation. No obvious focal consolidations, pleural effusions, rib fracture, pneumothoraces. Labs including his CBC with a WBC count of 12.9, hemoglobin 16.3, platelets 278. CMP: Sodium 142, potassium 3.7, chloride 102, serum bicarb 16, BUN 13, creatinine 1.27, glucose 127. Lactic 7.9. Normal saline infusing at 130 mL/h. LFTs mildly elevated. Troponin less than 0.012. Urine toxicology screen positive for marijuana. Serum alcohol level 12. Carbon monoxide 1.2%. Patient currently being evaluated in the emergency department. He is lethargic, but wakes up and answers orientation questions appropriately. He does not recall the events mentioned above. His breathing is nonlabored. He is on room air. Does not appear to be in any respiratory distress. Actually, denies any difficulty in breathing at the moment. No coughing. No wheezing. No accessory muscle use. No conversational dyspnea. Multiple soft superficial abrasions on his chest. Patient does vape, and also smokes marijuana. Mother states that patient is occasionally noncompliant with his inhalers. Father states his asthma could be triggered by dust in the barn, as they were recently cleaning the inside. Remarked that he was in the barn last time his asthma was exacerbated. No infectious like symptoms reported. Current vital signs: Temperature 98.5 F, heart rate 72 bpm, blood pressure 106/57 mmHg, nontachypneic, SpO2 recorded at 94% on room air. The patient is seen today November 05, 2024 in follow-up on the selective care unit. He is currently resting in bed. Maintaining O2 saturations in the 90s on room air oxygen. No seizure activity noted. EEG revealed no seizure activity. White count 9.9. Hemoglobin 14.5. Platelets 257. Sodium 137. Potassium 4.5. Bicarb 25. BUN 18. Creatinine 0.98. Glucose 97. AST 118. ALT 83. He is albuterol nebulized treatments, Symbicort, Singulair, prednisone. Heparin for DVT prophylaxis. Objective - Vital Signs Vital signs: Vital Signs Temp 98.4 F 11/05/24 11:40 Pulse 61 11/05/24 11:40 Resp 18 11/05/24 11:40 BP 120/65 11/05/24 11:40 Pulse Ox 97 11/05/24 11:40 FiO2 Intake & Output 11/04/24 11/05/24 11/05/24 18:59 06:59 18:59 Weight 66.5 kg Other: Voiding Method Toilet # Voids 1 2 - Exam GENERAL EXAM: Awake, alert, 24-year-old male, on room air oxygen, no seizure activity. No respiratory distress noted. HEAD: Normocephalic and atraumatic EYES: Normal reaction of pupils, equal and approximate 7-8 mm in size NOSE: Clear with pink turbinates. THROAT: No erythema or exudates. NECK: No masses, no JVD. CHEST: No chest wall deformity. Multiple superficial abrasions to the chest. No crepitus or subcu air LUNGS: Equal air entry with no crackles, wheeze, rhonchi or dullness. No c onversational dyspnea or accessory muscle use. CVS: S1 and S2 normal with no audible murmur, regular rhythm. No extra heart sounds ABDOMEN: No hepatosplenomegaly, active bowel sounds, no guarding or rigidity. SPINE: No scoliosis or deformity SKIN: No rashes CENTRAL NERVOUS SYSTEM: Alert, oriented, no seizure activity noted, no focal deficits, tone is normal in all 4 extremities. EXTREMITIES: There is no peripheral edema, clubbing, or cyanosis. Peripheral pulses are intact. - Labs CBC & Chem 7: 11/05/24 06:43 11/05/24 06:43 Labs: Abnormal Lab Results - Last 24 Hours (Table) 11/05/24 11/05/24 Range/Units 06:43 06:43 Eosinophils # 0.01 L (0.04-0.35) 10*3/uL AST 118 H (17-59) U/L ALT 83 H (4-49) U/L Assessment and Plan Assessment: Possible asthma exacerbation Rule out seizure activity, EEG negative for seizures, CT brain negative Acute hypoxemic respiratory failure, possibly secondary to above, improved Lactic acidosis, 7.9 and is improved to 1.8 Anion gap metabolic acidosis Acute kidney injury, creatinine 1.27, improved to 0.98 Marijuana smoker Vaping/e-cigarette use History of moderate to severe persistent asthma, being managed by his primary care provider on an outpatient basis with a combination of Symbicort inhaler twice daily, DuoNebs as needed, and albuterol rescue inhaler as needed. History of seasonal allergies Plan: The patient was seen and evaluated Labs and medications reviewed Stable and on room air oxygen No seizure activity noted Neurology consult reviewed Cardiology consult reviewed Cleared for discharge Continue his home pulmonary medications Complete a prednisone taper Educated regarding vaping/smoking cessation Follow-up closely with his PCP I have personally seen and examined the patient, performed the documentation and the assessment and plan as written. Number of minutes spent on the visit: 10 Dictation was produced using [employer] software. Please excuse any grammatical, word or spelling errors.
--- NOTE | 2024-11-06 01:18 | P.DS ---
Providers Date of admission: 11/04/24 03:13 Attending physician: Larry Liz Consults: 11/04/24 03:10 Consult Physician Routine Consulting Provider: Jose Antonio Cabrales Consult Reason/Comments: 2nd degree heart block Do you want consulting provider notified?: Yes Consult Physician Routine Consulting Provider: Hieu Kerr Consult Reason/Comments: suspected seizure with prolonged post-ictal period Do you want consulting provider notified?: Yes 11/05/24 10:58 Consult Physician Urgent Consulting Provider: Julio Torres Consult Reason/Comments: drop beat on tele, unresponsive on admission Do you want consulting provider notified?: Yes Primary care physician: Antonia Pope Hospital Course: Diagnoses: Acute tonic seizure activity Associated with urine incontinence and tongue biting, thought to be secondary to acute asthma attack, currently resolved mild asthma attack, currently improving Substance abuse with marijuana Mild acute kidney injury, resolved Mild leukocytosis and transaminitis most likely secondary to seizure effect. came back to normal Elevated lactic acid resolved Mildly elevated alcohol level suspicious for alcohol use disorder Hospital course: This is a pleasant 64 years old male with past medical history of asthma Presents because of periods of unresponsiveness suspicious for seizure-like activity. Also there is some concerns of some shortness of breath in view of hi story of asthma he was admitted for asthma attack but currently he is not short of breath and is not wheezing Information were obtained with the patient and mother at bedside. Mother witnessed the incident where he become unresponsive and become a blue. Patient mother confirms to me she noticed periods of stiffness all over his body less than followed by tongue biting and urinating himself. However she denies presence of shakiness. Patient has been confused still picked up by EMS and came to emergency room. Patient evaluated by neurology. EEG was unremarkable and neurological exam yesterday. Patient To be monitored overnight, telemetry monitoring was suspicious for dropped beat therefore camera systems engineer team was consulted. No cardiac arrhythmia or heart block was found and patient was cleared for discharge by camera systems engineer. Also pulmonary service evaluate the patient currently on room air with no respiratory distress. Pulmonary team recommended to prescribe him Medrol Dosepak upon discharge which is provided. Patient was eager to go home from yesterday, was threatening to leave AMA if not going to be Discharge. However patient clinically stable and denies any other new complaint and he can be discharged home Problems and management plan were discussed with the patient and he verbalized understanding and acceptance Patient was found stable and can be discharged home in guarded prognosis however he needs follow-up as an outpatient. Patient was instructed to follow up with PCP within one week and patient agrees Patient is instructed to follow-up with neurologist as an outpatient and he agrees Also patient was instructed to follow-up with manager music Dr. Lassiter and camera systems engineer Dr. Torres in 1 to 2 weeks and he agrees Physical exam Gen: patient is a AAOx3, no distress CVS: S1-S2, RRR, no murmur Lungs: B/L CTA, no wheezing Abdomen: soft, no distention, no tenderness, positive bowel sounds Extremity: no leg edema or induration Time spent more than 35 minutes Plan - Discharge Summary Discharge Rx Participant: Yes New Discharge Prescriptions: New methylPREDNISolone Dose Pack [Medrol Dose Pack] 4 mg PO DIRECTED #1 packet Continue Albuterol Inhaler [Ventolin Hfa Inhaler] 2 puff INHALATION RT-Q6H PRN PRN Reason: Shortness Of Breath Budesonide/Formoterol Fumarate [Breyna 160-4.5 Mcg Inhaler] 2 puff INHALATION RT-BID Albuterol Nebulized [Ventolin Nebulized] 2.5 mg INHALATION RT-TID PRN PRN Reason: Shortness Of Breath Discharge Medication List Albuterol Inhaler [Ventolin Hfa Inhaler] 2 puff INHALATION RT-Q6H PRN 10/13/13 [History] Albuterol Nebulized [Ventolin Nebulized] 2.5 mg INHALATION RT-TID PRN 11/04/24 [History] Budesonide/Formoterol Fumarate [Breyna 160-4.5 Mcg Inhaler] 2 puff INHALATION RT-BID 11/04/24 [History] methylPREDNISolone Dose Pack [Medrol Dose Pack] 4 mg PO DIRECTED #1 packet 11/05/24 [Rx] Follow up Appointment(s)/Referral(s): Antonia Pope MD [Primary Care Provider] - 1-2 days Jose Antonio Cabrales MD [STAFF PHYSICIAN] - 1 Week (Lung doctor for your asthma) Julio Torres MD [STAFF PHYSICIAN] - 2 Weeks (Your doctor for double check) Wilfred John MD [REFERRING] - 2 Weeks (Neurologist for double check) Activity/Diet/Wound Care/Special Instructions: Resume your previous diet Activity is restricted till you see your doctor We recommend to avoid vaping or marijuana We recommend to check your liver function test with your doctor within 1 week as they are not back to normal yet Discharge Disposition: HOME SELF-CARE
--- NOTE | 2024-11-07 10:07 | EEG ---
ELECTROENCEPHALOGRAM REPORT PREAMBLE: This is a 24-year-old male with suspected seizure. EEG FINDINGS: This is a 21-channel digital EEG recorded with video component, utilizing 10/20 international system with referential and bipolar montages. The background consists of well developed, well regulated, predominantly low voltage fast frequency beta activity intermixed with some 9-10 hertz moderate amplitude alpha activity seen in bihemispheric region. Background is posterior dominant and reactive to eye opening and closing. Photic driving response was not seen. Drowsiness was seen with appearance of some theta frequency rhythm. Stage 2 sleep was seen at the end of the study with appearance of sleep spindles and vertex waves. No focal or generalized epileptiform activity was seen. IMPRESSION: This is a normal EEG during wakefulness, drowsiness, and stage 2 sleep. Presence of excessive amount of low-voltage fast frequency beta activity suggests medication effect. MMKARINAL / IJJaz: [id number] /
== END 2024-11-05 16:49 | disposition home or self-care (01) ==
LOC: EC 23:55 → 3SCARD 11-04 03:13 → INTOOBSV 11-04 03:13 → 3SCARD 11-04 16:55
PROVIDERS: ADMIT Hospitalist; ATTEND Hospitalist
DX: J45.51 Severe persistent asthma with (acute) exacerbation (principal); J96.01 Acute respiratory failure with hypoxia; N17.9 Acute kidney failure, unspecified; D72.829 Elevated white blood cell count, unspecified; E87.20 Acidosis, unspecified; G40.409 Other generalized epilepsy and epileptic syndromes, not intractable, without status epilepticus; R74.01 Elevation of levels of liver transaminase levels; R32 Unspecified urinary incontinence; R74.8 Abnormal levels of other serum enzymes; F12.10 Cannabis abuse, uncomplicated; F17.290 Nicotine dependence, other tobacco product, uncomplicated; Z91.199 Patient's noncompliance with other medical treatment and regimen due to unspecified reason
CPT/HCPCS: 96376; 96361; 96374; 96375; 99291; 36415; 94640 ×3; 95816; 93005; 80053; 80048; 80076; 82375; 83605; 84484; 85025 ×2; 85610; 85730; 81001; 80306; 80320; 71045; 70450; G0378 ×2; J2060; J2405; J7512 ×2; J2919; J2470 ×2; 99285